=== PATIENT | male | born 1990 | race Caucasian/White ===

== ENCOUNTER 2016-11-24 23:55 | Emergency (ER) | payer SELFPAY ==
[~2016-11-24] VITALS: Ht 190.5 cm; Wt 84.0 kg
[~2016-11-24 23:55] MED LIST: LANTUS2P SC; NOVORP2 SQ; ONDA1TAB16 PO; PROM25TA5 PO
[2016-11-25] VITALS: BP 133/65; PULSE 90; RESP 18; TEMP 98.1; O2SAT 97
[2016-11-25] MEDS ORDERED: IBUPROFEN 800 MG TAB PO ONE (01:45)
[2016-11-25] MEDS ORDERED: PENICILLIN V POTASSIUM 500 MG TAB PO ONE (01:45)
[2016-11-25] MEDS ORDERED: PENI500T PO (01:58)
[2016-11-25] MEDS ORDERED: IBUP800T23 PO (01:58)
--- NOTE | 2016-11-25 02:03 | PD ---
HPI Chief Complaint: Oral / Dental Pain or Problem Time Seen by Provider: 01:37 Travel History International Travel<30 days: No Contact w/Intl Traveler<30days: No Traveled to known affect area: No History of Present Illness HPI 25 year-old male presents to the emergency department for complaint of dental pain with chronic dental infection. Patient has not seen dentist due to financial reasons. Patient denies fever chills patient states she's used over- the-counter Anbesol without relief. PFSH Past Medical History Narrative Medical Diabetes dental disease and tobacco use; nursing notes reviewed Diabetes: Yes Patient Takes Glucophage: Yes Diminished Hearing: No Immunizations Current: No Social History Alcohol Use: No Tobacco Use: Yes (1PPD) Substance Use: No Allergies-Medications (Allergen,Severity, Reaction): Coded Allergies: No Known Allergies (Unverified , 04/19/15) Reported Meds & Prescriptions Reported Meds & Active Scripts Active Zofran Tab (Ondansetron HCl) 4 Mg Tab 4 Mg PO Q6 PRN Phenergan (Promethazine HCl) 25 Mg Tab 25 Mg PO Q6 PRN Lantus (Insulin Glargine) 100 Units/Ml Inj 20 Unit SC HS dispense 1 month supply Reported Novolin R (Insulin Human Regular) 100 Units/Ml Inj 0 SQ DIRECTED Review of Systems Except as stated in HPI: all other systems reviewed are Neg General / Constitutional: No: Fever, Chills HENT: Positive: Dental Difficulties, No: Congestion Cardiovascular: No: Chest Pain or Discomfort Respiratory: No: Shortness of Breath Gastrointestinal: No: Vomiting Genitourinary: No: Flank Pain Musculoskeletal: No: Pain Skin: No Rash Neurologic: No: Weakness Hematologic/Lymphatic: No: Lymph Node Enlargement Physical Exam Narrative GENERAL: Well-developed well-nourished male in no acute distress no respiratory distress triage vital signs within normal range SKIN: Warm and dry. HEAD: Normocephalic. EYES: No scleral icterus. No injection or drainage. ENT: Extensive dental caries with erosion of multiple teeth with gingival edema and gingivitis no fluctuance collection of fluid or soft tissue swelling or palpable in sizable abscess. NECK: Supple, trachea midline. No JVD or lymphadenopathy. CARDIOVASCULAR: Regular rate and rhythm without murmurs, gallops, or rubs. RESPIRATORY: Breath sounds equal bilaterally. No accessory muscle use. Data Data Last Documented VS Vital Signs Date Time Temp Pulse Resp B/P Pulse Ox O2 Delivery O2 Flow Rate FiO2 11/25/16 00:00 98.1 90 18 133/65 97 Orders Penicillin V Potassium (Veetids) (11/25/16 01:45) Ibuprofen (Motrin) (11/25/16 01:45) Blood Glucose (11/25/16 01:37) MDM Medical Decision Making Medical Screen Exam Complete: Yes Emergency Medical Condition: Yes Medical Record Reviewed: Yes Differential Diagnosis Dentalgia, infected dental caries, dental abscess, hyperglycemia, uncontrolled diabetes, DKA Narrative Course Patient given first dose of antibiotic Penicillin VK 500 mg along with weight- based ibuprofen 800 mg Patient is diabetic and bedside Accu-Chek ordered to be checked and patient refuses to have blood sugar checked; patient is encouraged to follow up with primary care provider as well as dentist and to monitor his blood sugars closely as infection can cause his blood sugar to become uncontrolled and predispose him to DKA this was discussed in detail with the patient. Diagnosis Primary Impression: Dentalgia Additional Impression: Infected dental caries Referrals: Dentist call for appointment [facility] 1 day Patient Instructions: General Instructions Additional Instructions: Follow-up with dentist Follow-up with primary care provider or clinic Complete course of antibiotic as prescribed May use ibuprofen 800 mg as needed for pain as often as every 8 hours avoid prolonged use of high-dose ibuprofen Return to the emergency department for any concerns or change in condition Follow-up neck and diabetic Association diet closely monitor blood sugars closely while on antibiotic for dental infection Med/Other Pt SpecificInfo: Prescription(s) given Scripts Ibuprofen 800 Mg [id number] Mg PO Q8H PRN (PAIN GREATER THAN 5) #12 TAB Ref 0 Prov:Kailyn Mays MD 11/25/16 Penicillin V Potassium 500 Mg Syn533 Mg PO Q6H 10 Days Ref 0 Prov:Kailyn Mays MD 11/25/16 Disposition: 01 DISCHARGE HOME Condition: Stable Kailyn Mays MD Nov 25, 2016 02:03
== END 2016-11-25 04:37 | disposition home or self-care (01) ==
LOC: PHED 23:55
DX: K08.89 Other specified disorders of teeth and supporting structures (principal); K02.9 Dental caries, unspecified; K04.7 Periapical abscess without sinus; F17.210 Nicotine dependence, cigarettes, uncomplicated
CPT/HCPCS: 99283

== ENCOUNTER 2016-12-16 16:42 | Inpatient (IN) | payer SELFPAY ==
[2016-12-15] MEDS: SODIUM CHLOR 0.9% 1000 ML INJ 1,000 ML IV SCH (21:00)
[2016-12-15] MEDS: DEXT 5%-NACL 0.9% 1000 ML INJ 1,000 ML IV SCH (23:20)
[~2016-12-16] VITALS: Ht 190.5 cm; Wt 80.0 kg
[~2016-12-16 16:42] MED LIST changes: +IBUP800T23 PO; +PENI500T PO
[2016-12-16 16:43] VITALS: BP 149/68; PULSE 98; RESP 16; TEMP 98.1; O2SAT 98
--- NOTE | 2016-12-16 17:02 | PD ---
Physical Exam Date Seen by Provider: Dec 16, 2016 Time Seen by Provider: 16:57 Narrative Pt is a 25 year old male presenting to the ED for evaluation of a headache nausea and vomiting. Pt states the headache is frontal and throbbing. He states he took Excedrin and Naproxen with no relief. Pt has a history of migraines. The vomiting and nausea started prior to the headache. Pt is unable to keep any food or fluids down. Pt also reports testicle and back pain. The back pain is bilateral. Pt is a T1 diabetic, he did not check his blood glucose today nor did he take his insulin. He checked his blood glucose yesterday and his reading was >400. BG in triage is 497, VSS. Awaiting bed placement. Data Data Last Documented VS Vital Signs Date Time Temp Pulse Resp B/P (MAP) Pulse Ox O2 Delivery O2 Flow Rate FiO2 12/16/16 16:43 98.1 98 16 149/68 (95) 98 MDM Supervised Visit with MALLORIE: Lana Patton Dec 16, 2016 17:02
[2016-12-16] MEDS ORDERED: ONDANSETRON ODT 4 MG TAB PO ONE (17:15)
[2016-12-16 18:00] LABS: BLOOD, URINE NEG (NEG); COMMENT (UR) CULT NOT INDICATED; CULTURE IF INDICATED CULT NOT INDICATED; GLUCOSE,URINE 1000 mg/dL (NEG); KETONE, URINE 150 mg/dL (NEG); NITRITE,URINE NEG (NEG); SQUAMOUS EPITHELIAL CELL URINE <1 /hpf (0-5); URINE COLOR LIGHT-YELLOW (YELLW/STRAW)
[2016-12-16 18:01] LABS: AUTOMATED NEUTROPHIL # 6.4 TH/MM3 (1.8-7.7); BASOPHIL % 0.3 % (0.0-2.0); EOSINOPHIL % 0.1 % (0.0-4.0); HEMATOCRIT 49.1 % (39.0-51.0); HEMO FLAGS DIFF FINAL; LYMPH % 21.4 % (9.0-44.0); LYMPHOCYTE # 1.9 TH/MM3 (1.0-4.8); MEAN CELL VOLUME 96.8 FL (80.0-100.0); MEAN CORPUSCULAR HEMOGLOBIN 33.5 PG (27.0-34.0); MEAN CORPUSCULAR HGB CONC 34.6 % (32.0-36.0); MONO % 5.6 % (0.0-8.0); NEUT % 72.6 % (16.0-70.0); PLATELET COUNT 325 TH/MM3 (150-450); RED BLOOD COUNT 5.07 MIL/MM3 (4.50-5.90); WHITE BLOOD COUNT 8.8 TH/MM3 (4.0-11.0)
[2016-12-16 18:38] VITALS: BP 122/67; PULSE 88; RESP 18; TEMP 97.9; O2SAT 98
[2016-12-16] MEDS ORDERED: NOVORP2 SQ (18:45)
[2016-12-16] MEDS ORDERED: LANTUS2P SQ (18:45)
[2016-12-16 18:46] LABS: ALKALINE PHOSPHATASE 161 U/L (45-117); ALT (GPT) 56 U/L (12-78); ANION GAP 18 MEQ/L (5-15); AST (GOT) 26 U/L (15-37); BETA-HYDROXYBUTYRATE 6.57 MMOL/L (0.00-0.39); BICARBONATE 15.6 MEQ/L (21.0-32.0); BLOOD UREA NITROGEN 16 MG/DL (7-18); CHLORIDE 89 MEQ/L (98-107); GLOMERULAR FILTRATION RATE 54 ML/MIN (>89); MAGNESIUM 2.3 MG/DL (1.5-2.5); POTASSIUM 5.2 MEQ/L (3.5-5.1); TOTAL BILIRUBIN ADULT 0.8 MG/DL (0.2-1.0)
[2016-12-16 18:51] LABS: SODIUM (NA) 123 MEQ/L (136-145)
[2016-12-16] MEDS ORDERED: SODIUM CHLOR 0.9% 1000 ML INJ 1,000 ML IV SCH (18:51)
[2016-12-16 18:59] VITALS: BP 122/67; PULSE 88; RESP 18; TEMP 97.9; O2SAT 100
[2016-12-16] MEDS ORDERED: SODIUM CHLORIDE 0.9% FLUSH 10 ML FLUSH IV FLUSH PRN ×2 (19:00→20:45)
[2016-12-16] MEDS ORDERED: ONDANSETRON HCL 4 MG/2 ML VIAL IV PUSH ONE (19:00)
[2016-12-16] MEDS ORDERED: MORPHINE SULFATE 4 MG/ML INJ IV PUSH ONE (19:00)
[2016-12-16] MEDS ORDERED: INSULIN REGULAR (IV INFUSION) 100 UNITS in SODIUM CHLORIDE 0.9% INJ 99 ML IV SCH (19:01)
[2016-12-16 19:14] VITALS: BP 113/66; PULSE 120; RESP 17; O2SAT 100
[2016-12-16] MEDS ORDERED: POTASSIUM CHLOR 40 MEQ PREMIX 100 ML IV PRN ×2 (19:15)
[2016-12-16] MEDS ORDERED: INSULIN HUMAN REGULAR 1,000 UNITS/10 ML VIAL IV PUSH ONE (19:15)
[2016-12-16] MEDS ORDERED: POTASSIUM CHLOR 20 MEQ PREMIX 100 ML IV PRN ×6 (19:15)
[2016-12-16] MEDS ORDERED: SODIUM PHOSPHATE INJ 15 MMOL in SODIUM CHLORIDE 0.9% INJ 100 ML IV PRN (19:15)
[2016-12-16] MEDS ORDERED: SODIUM BICARBONATE 8.4% SOLN 50 MEQ/50 ML VIAL IV PRN ×2 (19:15)
--- NOTE | 2016-12-16 19:43 | PD ---
HPI Chief Complaint: Headache Time Seen by Provider: 18:47 Travel History International Travel<30 days: No Contact w/Intl Traveler<30days: No Traveled to known affect area: No History of Present Illness HPI 25-year-old male that presents to the ED for evaluation of headache, nausea and vomiting and abdominal pain and testicular pain. Per patient has a history of diabetes type 1 and his sugars have been high. Per patient for the past 2 days his been having nonstop nausea with vomiting and she is afraid to be anything because he is afraid he is to come back up. The patient his abdominal pain is diffuse to the abdomen. Per patient his discomfort is more severe when he throws up. No blood on the emesis. Per patient she has no chest pain. No fevers chills or sweats. No urinary or bowel movement issues. Per patient the discomfort to the abdomen is 5 out of 10 and gets worse when he has vomiting. He denies any allergies to medication. She states that he's been compliant with his insulin but has not used much today because he has not eaten anything today. States that the headache started today on the forehead and he believes is more from throwing up. He denies any numbness, tilling, weakness. She's not been able to keep anything down for the past day. States that he's been also been having some back pain which she attributes to his kidneys. He denies any urinary symptoms however. He does state that he has testicular pain on the right side. Per patient his been going on for a couple of days. Denies any possibility of STD. No dysuria or polyuria. PFSH Past Medical History Diabetes: Yes Patient Takes Glucophage: No Diminished Hearing: No Immunizations Current: No Tetanus Vaccination: Unknown Social History Alcohol Use: No Tobacco Use: Yes (1PPD) Substance Use: No Allergies-Medications (Allergen,Severity, Reaction): Coded Allergies: No Known Allergies (Unverified , 12/16/16) Reported Meds & Prescriptions Reported Meds & Active Scripts Active Reported Lantus Inj (Insulin Glargine) 1,000 Unit/10 Ml Vial 30 Units SQ HS Novolin R Inj (Insulin Human Regular) 1,000 Unit/10 Ml Vial 0 SQ DIRECTED Sliding Scale As Directed. Review of Systems Except as stated in HPI: all other systems reviewed are Neg Physical Exam Narrative GENERAL: SKIN: Warm and dry. HEAD: Atraumatic. Normocephalic. EYES: Pupils equal and round. No scleral icterus. No injection or drainage. ENT: No nasal bleeding or discharge. Mucous membranes pink and moist. Tongue is midline. No uvula deviation. NECK: Trachea midline. No JVD. CARDIOVASCULAR: Regular rate and rhythm. No murmurs, S3, S4. RESPIRATORY: No accessory muscle use. Clear to auscultation. Breath sounds equal bilaterally. GASTROINTESTINAL: Abdomen soft, non-tender with palpation, nondistended. Hepatic and splenic margins not palpable. Patient has reproducible pain with touch in the right testicle. No obvious deformity noted. No swelling. No masses noted. No hernias noted. MUSCULOSKELETAL: Extremities without clubbing, cyanosis, or edema. No obvious deformities. Full range of motion of the upper and lower extremities bilaterally. 2+ pulses bilaterally. NEUROLOGICAL: Awake and alert. No obvious cranial nerve deficits. Motor grossly within normal limits. Five out of 5 muscle strength in the arms and legs. Normal speech. PSYCHIATRIC: Appropriate mood and affect; insight and judgment normal. Data Data Last Documented VS Vital Signs Date Time Temp Pulse Resp B/P (MAP) Pulse Ox O2 Delivery O2 Flow Rate FiO2 12/16/16 19:22 88 20 100 Room Air 12/16/16 19:14 113/66 (82) 12/16/16 18:59 97.9 Orders Orders Complete Blood Count With Diff (12/16/16 17:02) Comprehensive Metabolic Panel (12/16/16 17:02) Magnesium (Mg) (12/16/16 17:02) Beta Hydroxybutyrate (Acetone) (12/16/16 17:02) Urinalysis - C+S If Indicated (12/16/16 17:02) Ondansetron Odt (Zofran Odt) (12/16/16 17:15) Lipase (12/16/16 18:51) Lactic Acid (12/16/16 18:51) Iv Access Insert/Monitor (12/16/16 18:51) Ecg Monitoring (12/16/16 18:51) Oximetry (12/16/16 18:51) Sodium Chloride 0.9% Flush (Ns Flush) (12/16/16 19:00) Morphine Inj (Morphine Inj) (12/16/16 19:00) Sodium Chlor 0.9% 1000 Ml Inj (Ns 1000 M (12/16/16 18:51) Us Testicles W Doppler (12/16/16 18:51) Ondansetron Inj (Zofran Inj) (12/16/16 19:00) Cost Control Analyst / Telemetry LILIA.Q8H (12/16/16 19:01) ^ Insert Iv (12/16/16 19:01) Diet Npo (12/17/16 Breakfast) Sodium Chlor 0.9% 1000 Ml Inj (Ns 1000 M (12/16/16 19:01) Dext 5%-Nacl 0.9% 1000 Ml Inj (D5w-Ns 10 (12/16/16 19:01) Insulin Human Regular Inj (Novolin R Inj (12/16/16 19:15) Sodium Chloride 0.9... W/Insulin Regular (12/16/16 19:01) Potassium Chlor 40 Meq Premix (Kcl 40 Me (12/16/16 19:15) Potassium Chlor 40 Meq Premix (Kcl 40 Me (12/16/16 19:15) Potassium Chlor 20 Meq Premix (Kcl 20 Me (12/16/16 19:15) Potassium Chlor 20 Meq Premix (Kcl 20 Me (12/16/16 19:15) Potassium Chlor 20 Meq Premix (Kcl 20 Me (12/16/16 19:15) Potassium Chlor 20 Meq Premix (Kcl 20 Me (12/16/16 19:15) Potassium Chlor 20 Meq Premix (Kcl 20 Me (12/16/16 19:15) Potassium Chlor 20 Meq Premix (Kcl 20 Me (12/16/16 19:15) Sodium Bicarbonate 8.4% Inj (Sodium Bica (12/16/16 19:15) Sodium Bicarbonate 8.4% Inj (Sodium Bica (12/16/16 19:15) Sodium Phosphate Inj (Sodium Phosphate I (12/16/16 19:15) Hemoglobin (Hgb) A1c (12/16/16 19:01) Basic Metabolic Panel (Bmp) (12/17/16 00:01) Basic Metabolic Panel (Bmp) (12/17/16 06:01) Basic Metabolic Panel (Bmp) (12/17/16 12:01) Basic Metabolic Panel (Bmp) (12/17/16 18:01) Magnesium (Mg) (12/17/16 00:01) Magnesium (Mg) (12/17/16 06:01) Magnesium (Mg) (12/17/16 12:01) Magnesium (Mg) (12/17/16 18:01) Phosphorus (Po4) (12/17/16 00:01) Phosphorus (Po4) (12/17/16 06:01) Phosphorus (Po4) (12/17/16 12:01) Phosphorus (Po4) (12/17/16 18:01) Beta Hydroxybutyrate (Acetone) (12/17/16 06:01) Beta Hydroxybutyrate (Acetone) (12/17/16 18:01) Admit To Inpatient (12/16/16 ) Vital Signs (Adult) Q4H (12/16/16 20:32) Activity Oob With Assistance (12/16/16 20:32) Cost Control Analyst / Telemetry .CONTINUOUS (12/16/16 20:32) Sodium Chloride 0.9% Flush (Ns Flush) (12/16/16 20:45) Sodium Chloride 0.9% Flush (Ns Flush) (12/16/16 21:00) Case Management Consult (12/16/16 20:32) Naloxone Inj (Narcan Inj) (12/16/16 20:45) Inpatient Certification (12/16/16 ) Admit Order (Ed Use Only) (12/16/16 20:34) Labs Laboratory Tests Test 12/16/16 17:20 12/16/16 17:25 12/16/16 17:28 Lactic Acid Level 1.1 mmol/L White Blood Count 8.8 TH/MM3 Red Blood Count 5.07 MIL/MM3 Hemoglobin 17.0 GM/DL Hematocrit 49.1 % Mean Corpuscular Volume 96.8 FL Mean Corpuscular Hemoglobin 33.5 PG Mean Corpuscular Hemoglobin Concent 34.6 % Red Cell Distribution Width 14.0 % Platelet Count 325 TH/MM3 Mean Platelet Volume 6.2 FL Neutrophils (%) (Auto) 72.6 % Lymphocytes (%) (Auto) 21.4 % Monocytes (%) (Auto) 5.6 % Eosinophils (%) (Auto) 0.1 % Basophils (%) (Auto) 0.3 % Neutrophils # (Auto) 6.4 TH/MM3 Lymphocytes # (Auto) 1.9 TH/MM3 Monocytes # (Auto) 0.5 TH/MM3 Eosinophils # (Auto) 0.0 TH/MM3 Basophils # (Auto) 0.0 TH/MM3 CBC Comment DIFF FINAL Differential Comment Blood Urea Nitrogen 16 MG/DL Creatinine 1.56 MG/DL Random Glucose 496 MG/DL Total Protein 8.2 GM/DL Albumin 4.0 GM/DL Calcium Level 9.0 MG/DL Magnesium Level 2.3 MG/DL Alkaline Phosphatase 161 U/L Aspartate Amino Transf (AST/SGOT) 26 U/L Alanine Aminotransferase (ALT/SGPT) 56 U/L Total Bilirubin 0.8 MG/DL Sodium Level 123 MEQ/L Potassium Level 5.2 MEQ/L Chloride Level 89 MEQ/L Carbon Dioxide Level 15.6 MEQ/L Anion Gap 18 MEQ/L Estimat Glomerular Filtration Rate 54 ML/MIN Lipase 68 U/L B-Hydroxybutyrate 6.57 MMOL/L Urine Color LIGHT-YELLOW Urine Turbidity CLEAR Urine pH 6.0 Urine Specific Cyril 1.039 Urine Protein TRACE mg/dL Urine Glucose (UA) 1000 mg/dL Urine Ketones 150 mg/dL Urine Occult Blood NEG Urine Nitrite NEG Urine Bilirubin NEG Urine Urobilinogen LESS THAN 2.0 MG/DL Urine Leukocyte Esterase NEG Urine WBC LESS THAN 1 /hpf Urine Squamous Epithelial Cells <1 /hpf Microscopic Urinalysis Comment CULT NOT INDICATED MDM Medical Decision Making Medical Screen Exam Complete: Yes Emergency Medical Condition: Yes Medical Record Reviewed: Yes Interpretation(s) CBC & BMP Diagram 12/16/16 17:25 Total Protein 8.2, Albumin 4.0, Calcium Level 9.0, Magnesium Level 2.3, Alkaline Phosphatase 161 H, Aspartate Amino Transf (AST/SGOT) 26, Alanine Aminotransferase (ALT/SGPT) 56, Total Bilirubin 0.8 acetone elevated US shows no sign of acute disease other than microlithiasis Differential Diagnosis DKA versus intractable nausea and vomiting versus diabetes versus abdominal pain versus dehydration versus hyperglycemia Narrative Course 25-year-old male that presents to the ED for evaluation of abdominal pain, vomiting as well as right testicular pain. Patient was properly examined and was found to have signs and symptoms very consistent what appears to be DKA. Unclear of the testicular pain but we'll do ultrasound for this. Labs were done. Labs confirmed diagnosis of DKA. Anion gap of 18, elevated potassium as well as elevated sugars in the 400s. Acetone elevated as well. DKA protocol was started. Case discussed with my attending Dr. Arnold who agrees with plan. Patient will be admitted for DKA. This was discussed with the patient who agrees with plan. Ultrasound showed microlithiasis. Otherwise unremarkable. This time patient will be admitted for DKA. Case discussed with Dr. Sutherland who agrees with admission. Diagnosis Primary Impression: DKA (diabetic ketoacidoses) Qualified Codes: E10.10 - Type 1 diabetes mellitus with ketoacidosis without coma Additional Impression: Testicular pain, right Admitting Information Admitting Physician Requests: Admit Etienne Andrews Dec 16, 2016 19:43
--- NOTE | 2016-12-16 20:39 | RADRPT ---
EXAM DATE/TIME: 12/16/2016 19:09 [facility] COMPARISON: No previous studies available for comparison. INDICATIONS : Testicular pain. MEDICAL HISTORY : Diabetes. Nausea. Vomiting. SURGICAL HISTORY : Left foot surgery. ENCOUNTER: Initial ACUITY: 2 days PAIN SCORE: 4/10 LOCATION: Bilateral testicles. MEASUREMENTS: RIGHT TESTICLE: 4.2 x 3.0 x 1.8cm LEFT TESTICLE: 4.0 x 2.8 x 1.6cm FINDINGS: RIGHT TESTICLE: Homogeneous echotexture without intra or extratesticular mass. There are tiny punctate echogenic foc i seen within the testicle. Blood flow is symmetric and within normal limits. No hydrocele or varico nahum. Epididymis is within normal limits. LEFT TESTICLE: Homogeneous echotexture without intra or extratesticular mass. There are tiny punctate echogenic foc i seen within the testicle. Blood flow is symmetric and within normal limits. No hydrocele or varico nahum. Epididymis is within normal limits. SCROTUM: Within normal limits. CONCLUSION: Testicles demonstrate normal flow and are without focal masses. There does appear to be minimal micro lithiasis bilaterally. Samson Conway MD on December 16, 2016 at 20:35 Board Certified Radiologist. This report was verified electronically.
[2016-12-16] MEDS ORDERED: NALOXONE HCL 0.4 MG/ML AMP IV PRN (20:45)
[2016-12-16] MEDS: SODIUM CHLORIDE 0.9% FLUSH 10 ML FLUSH IV FLUSH SCH (21:00)
[2016-12-16 22:06] VITALS: BP 114/64; PULSE 101; RESP 20; TEMP 97.7; O2SAT 99
[2016-12-16] MEDS: SODIUM CHLOR 0.9% 1000 ML INJ 1,000 ML IV SCH (23:01)
[2016-12-17] VITALS (11 sets, daily range): BP systolic 86–125; BP diastolic 48–71; PULSE 70–93; RESP 14–18; TEMP 97.4–98.5; O2SAT 98–100
[2016-12-17] MEDS: DEXT 5%-NACL 0.9% 1000 ML INJ 1,000 ML IV SCH (00:01)
[2016-12-17] MEDS ORDERED: SODIUM CHLOR 0.9% 1000 ML INJ 1,000 ML IV ONE (01:00)
[2016-12-17 01:34] LABS: BICARBONATE 16.9 MEQ/L (21.0-32.0); POTASSIUM 3.8 MEQ/L (3.5-5.1)
--- NOTE | 2016-12-17 01:37 | HHI.HP ---
[facility] Primary Care Physician Admission Diagnosis acute DKA Diagnoses: Travel History International Travel<30 Days: No Contact w/Intl Traveler <30 Da: No Traveled to Known Affected Are: No History of Present Illness nausea vomiting abodminal pain 2 day right testicle pain 4 days no fever vomiting maybe black no blood thinners no cough no burning or pain on urination. No blood in urine or stool. Diabetic, reports compliance. takes novolin r sliding scale and levemir 30units qhs no chest pain/ sob/ dizziness/syncope Review of Systems Except as stated in HPI: all other systems reviewed are Neg Past Family Social History Past Medical History dm Past Surgical History no sx Allergies: Coded Allergies: No Known Allergies (Unverified , 12/16/16) Family History lung cancer- mom Social History smokes about 1 pack a day no etoh use marijuana previously used to use iv drugs, but none since more than a year Physical Exam Vital Signs Vital Signs Date Time Temp Pulse Resp B/P (MAP) Pulse Ox O2 Delivery O2 Flow Rate FiO2 12/17/16 00:11 93 15 86/48 (61) 99 12/16/16 22:06 97.7 101 20 114/64 (81) 99 12/16/16 19:22 88 20 100 Room Air 12/16/16 19:14 120 17 113/66 (82) 100 Room Air 12/16/16 18:59 97.9 88 18 122/67 (85) 100 Room Air 12/16/16 18:38 88 18 98 Room Air 12/16/16 18:38 97.9 88 18 122/67 (85) 98 Room Air 12/16/16 16:43 98.1 98 16 149/68 (95) 98 Physical Exam GENERAL: This is a well-nourished, well-developed patient, in no apparent distress. SKIN: No rashes, ecchymoses or lesions. Cool and dry. HEAD: Atraumatic. Normocephalic. No temporal or scalp tenderness. EYES: No scleral icterus. No injection or drainage. ENT: Nose without bleeding, purulent drainage or septal hematoma. . Airway patent. extremely poor dentition with multiple cracked teeth, periodontal disease. NECK: Trachea midline. No JVD CARDIOVASCULAR: Regular rate and rhythm without murmurs, gallops, or rubs. RESPIRATORY: Clear to auscultation. Breath sounds equal bilaterally. No wheezes , rales, or rhonchi. GASTROINTESTINAL: Abdomen soft, non-tender, nondistended. No guarding. : Patient was examined with a leather production worker nurse Pilar. Patient has no evidence of swelling on right testicle. No pain was elicited on palpation or movement of the testicle. Reports that the pain is actually comes and goes. MUSCULOSKELETAL: Extremities without clubbing, cyanosis, or edema No calf tenderness. NEUROLOGICAL: Awake and alert. Motor and sensory grossly within normal limits. Normal speech. Laboratory Laboratory Tests Test 12/16/16 17:20 12/16/16 17:25 12/16/16 17:28 12/17/16 00:54 Lactic Acid Level 1.1 White Blood Count 8.8 Red Blood Count 5.07 Hemoglobin 17.0 Hematocrit 49.1 Mean Corpuscular Volume 96.8 Mean Corpuscular Hemoglobin 33.5 Mean Corpuscular Hemoglobin Concent 34.6 Red Cell Distribution Width 14.0 Platelet Count 325 Mean Platelet Volume 6.2 Neutrophils (%) (Auto) 72.6 Lymphocytes (%) (Auto) 21.4 Monocytes (%) (Auto) 5.6 Eosinophils (%) (Auto) 0.1 Basophils (%) (Auto) 0.3 Neutrophils # (Auto) 6.4 Lymphocytes # (Auto) 1.9 Monocytes # (Auto) 0.5 Eosinophils # (Auto) 0.0 Basophils # (Auto) 0.0 CBC Comment DIFF FINAL Differential Comment Blood Urea Nitrogen 16 Creatinine 1.56 Random Glucose 496 Total Protein 8.2 Albumin 4.0 Calcium Level 9.0 Magnesium Level 2.3 Alkaline Phosphatase 161 Aspartate Amino Transf (AST/SGOT) 26 Alanine Aminotransferase (ALT/SGPT) 56 Total Bilirubin 0.8 Sodium Level 123 Potassium Level 5.2 Chloride Level 89 Carbon Dioxide Level 15.6 Anion Gap 18 Estimat Glomerular Filtration Rate 54 Lipase 68 B-Hydroxybutyrate 6.57 Urine Color LIGHT-YELLOW Urine Turbidity CLEAR Urine pH 6.0 Urine Specific [place] 1.039 Urine Protein TRACE Urine Glucose (UA) 1000 Urine Ketones 150 Urine Occult Blood NEG Urine Nitrite NEG Urine Bilirubin NEG Urine Urobilinogen LESS THAN 2.0 Urine Leukocyte Esterase NEG Urine WBC LESS THAN 1 Urine Squamous Epithelial Cells <1 Microscopic Urinalysis Comment CULT NOT INDICATED Result Diagram: 12/16/16 1725 12/16/16 1725 Imaging Last 48 hours Impressions Scrotum Ultrasound 12/16/16 1851 Signed Impressions: Service Date/Time: Friday, December 16, 2016 19:09 - CONCLUSION: Testicles demonstrate normal flow and are without focal masses. There does appear to be minimal microlithiasis bilaterally. MD Zeferino Laboy VTE Risk Assessment Caprini VTE Risk Assessment: Mod/High Risk (score >= 2) Caprini Risk Assessment Model Point Value = 1 Point Value = 2 Point Value = 3 Point Value = 5 Age 41-60 Minor surgery BMI > 25 kg/m2 Swollen legs Varicose veins or History of unexplained or recurrent spontaneous Oral contraceptives or hormone replacement Sepsis (< 1 month) Serious lung disease, including pneumonia (< 1 month) Abnormal pulmonary function Acute myocardial infarction Congestive heart failure (< 1 month) History of inflammatory bowel disease Medical patient at bed rest Age 61-74 Arthroscopic surgery Major open surgery (> 45 min) Laparoscopic surgery (> 45 min) Malignancy Confined to bed (> 72 hours) Immobilizing plaster cast Central venous access Age >= 75 History of VTE Family history of VTE Factor V Leiden Prothrombin [id number] Lupus anticoagulant Anticardiolipin antibodies Elevated serum homocysteine Heparin-induced thrombocytopenia Other congenital or acquired thrombophilia Stroke (< 1 month) Elective arthroplasty Hip, pelvis, or leg fracture Acute spinal cord injury (< 1 month) Prophylaxis Regimen Total Risk Factor Score Risk Level Prophylaxis Regimen 0-1 Low Early ambulation 2 Moderate Order ONE of the following: *Sequential Compression Device (SCD) *Heparin 5000 units SQ BID 3-4 Higher Order ONE of the following medications: *Heparin 5000 units SQ TID *Enoxaparin/Lovenox 40 mg SQ daily (WT < 150 kg, CrCl > 30 mL/min) *Enoxaparin/Lovenox 30 mg SQ daily (WT < 150 kg, CrCl > 10-29 mL/min) *Enoxaparin/Lovenox 30 mg SQ BID (WT < 150 kg, CrCl > 30 mL/min) AND/OR *Sequential Compression Device (SCD) 5 or more Highest Order ONE of the following medications: *Heparin 5000 units SQ TID (Preferred with Epidurals) *Enoxaparin/Lovenox 40 mg SQ daily (WT < 150 kg, CrCl > 30 mL/min) *Enoxaparin/Lovenox 30 mg SQ daily (WT < 150 kg, CrCl > 10-29 mL/min) *Enoxaparin/Lovenox 30 mg SQ BID (WT < 150 kg, CrCl > 30 mL/min) AND *Sequential Compression Device (SCD) Assessment and Plan Assessment and Plan Impression: DKA Anion gap metabolic acidosis Right testicular pain- rule out torsion Severe periodontal disease- likely contributing to his DKA Plan: Patient was given normal saline 2 L IV bolus. He was started on insulin drip per protocol. We'll follow protocol. BMP every 4 hours. Testicular ultrasound done. Personally reviewed. No Evidence of torsion. Official consult for possible removal of teeth. DVT prophylaxis with ambulation, and Lovenox. GI prophylaxis on pantoprazole. Discussed Condition With patient, ER MD, nursing staff Physician Certification 2 Midnight Certification Type: Admission for Inpatient Services Order for Inpatient Services .The services are ordered in accordance with Medicare regulations or non- Medicare payer requirements, as applicable. In the case of services not specified as inpatient-only, they are appropriately provided as inpatient services in accordance with the 2-midnight benchmark. Estimated LOS (days): 2 days is the estimated time the patient will need to remain in the hospital, assuming treatment plan goals are met and no additional complications. Post-Hospital Plan: Home Blake Sutherland MD Dec 17, 2016 01:37
[2016-12-17] MEDS ORDERED: MORPHINE SULFATE 4 MG/ML INJ IV PUSH PRN (01:45)
[2016-12-17 05:12] LABS: BICARBONATE 18.6 MEQ/L (21.0-32.0); POTASSIUM 4.1 MEQ/L (3.5-5.1)
[2016-12-17 05:33] LABS: CALCIUM-PROTEIN CORRECTED 8.1 MG/DL (8.5-10.1)
[2016-12-17] MEDS ORDERED: INSULIN DETEMIR 100 UNITS/ML VIAL SQ ONE (06:15)
[2016-12-17] MEDS ORDERED: CALCIUM GLUCONATE 10% 1 GM/10 ML VIAL IV PUSH ONE (06:15)
[2016-12-17] MEDS ORDERED: CALCIUM GLUCONATE INJ 2 GM in SODIUM CHLORIDE 0.9% INJ 100 ML IV ONE (06:30)
[2016-12-17] MEDS: SODIUM CHLORIDE 0.9% FLUSH 10 ML FLUSH IV FLUSH SCH ×2 (09:00→21:01)
[2016-12-17] MEDS ORDERED: DC previous DKA orders (HMC 1917) ONE (11:00)
[2016-12-17] MEDS ORDERED: GLUCAGON 1 MG/ML VIAL OTHER PRN (11:00)
[2016-12-17] MEDS ORDERED: DC Insulin drip 2 hrs post basal insulin dose ONE (11:00)
[2016-12-17] MEDS ORDERED: DEXTROSE 50% IN WATER 50 ML VIAL(D50) IV PRN (11:00)
[2016-12-17] MEDS: SODIUM CHLOR 0.9% 1000 ML INJ 1,000 ML IV SCH ×2 (12:00→21:01)
[2016-12-17] MEDS: INSULIN ASPART SUPPLEMENTAL SCALE SQ SCH ×3 (12:21→21:16)
[2016-12-17 12:48] LABS: HEMOGLOBIN A1a 1.4 %; HEMOGLOBIN A1b 1.6 %; HEMOGLOBIN Ao 73.4 %; HEMOGLOBIN LA1C 4.3 %; HEMOGLOBIN P3 5.4 %
--- NOTE | 2016-12-17 15:34 | HHI.PR ---
Subjective Remarks Follow up DKA. Patient has no complaints at this time. No dyspnea, chest pain, nausea/vomiting. Objective Vitals Vital Signs Date Time Temp Pulse Resp B/P (MAP) Pulse Ox O2 Delivery O2 Flow Rate FiO2 12/17/16 14:07 70 16 109/63 (78) 100 12/17/16 13:20 118/71 (87) 12/17/16 12:00 88 16 100 12/17/16 10:00 98.2 80 18 114/57 (76) 100 12/17/16 09:00 90 18 95/59 (71) 98 Room Air 12/17/16 08:53 98 12/17/16 08:00 90 18 99/55 (70) 99 Room Air 12/17/16 07:15 97.4 78 18 89/53 (65) 100 Room Air 12/17/16 07:15 100 Room Air 12/17/16 02:45 79 18 90/52 (65) 99 Room Air 12/17/16 00:11 93 15 86/48 (61) 99 12/16/16 22:06 97.7 101 20 114/64 (81) 99 12/16/16 19:22 88 20 100 Room Air 12/16/16 19:14 120 17 113/66 (82) 100 Room Air 12/16/16 18:59 97.9 88 18 122/67 (85) 100 Room Air 12/16/16 18:38 88 18 98 Room Air 12/16/16 18:38 97.9 88 18 122/67 (85) 98 Room Air 12/16/16 16:43 98.1 98 16 149/68 (95) 98 I/O 12/16/16 12/16/16 12/16/16 12/17/16 12/17/16 12/17/16 07:00 15:00 23:00 07:00 15:00 23:00 Intake Total 16 ml 2500 ml Output Total 1200 ml 1150 ml Balance -1200 ml 16 ml 1350 ml Intake Oral 2280 ml IV Total 16 ml 220 ml Output Urine Total 1200 ml 1150 ml # Voids 2 4 # Bowel Movements 1 Result Diagram: 12/16/16 1725 12/17/16 0426 Imaging Last Impressions Scrotum Ultrasound 12/16/16 3061 Signed Impressions: Service Date/Time: Friday, December 16, 2016 19:09 - CONCLUSION: Testicles demonstrate normal flow and are without focal masses. There does appear to be minimal microlithiasis bilaterally. Samson Conway MD Objective Remarks General: No acute distress. Heart: Regular rate and rhythm. No murmur. Lungs: Clear to auscultation bilaterally. No wheezes, rales, or rhonchi. Breathing is nonlabored. Abdomen: Soft, nontender, nondistended. Extremities: No lower extremity edema. Psych: Alert and oriented. Procedures None Urinary Catheter: No Vascular Central Line Catheter: No A/P Problem List: (1) DKA (diabetic ketoacidoses) ICD Code: E13.10 - Other specified diabetes mellitus with ketoacidosis without coma Status: Acute (2) Testicular pain, right ICD Code: N50.811 - Right testicular pain Status: Acute (3) Type 1 diabetes mellitus ICD Code: E10.9 - Type 1 diabetes mellitus Status: Acute (4) Dentalgia ICD Code: K08.89 - Other specified disorders of teeth and supporting structures Status: Acute Assessment and Plan 1. Type 1 diabetes mellitus with DKA: Started on DKA protocol. DKA resolved and patient transitioned to subcutaneous insulin. Diabetic diet. Monitor accuchecks and cover with sliding scale insulin. 2. Dental pain: S/P oromaxillofacial surgery evaluation. Follow up with general dentistry as outpatient. 3. DVT prophylaxis: Lovenox. Discharge Planning Anticipate discharge next 1-2 days if glucose remains stable. Problem Qualifiers (1) DKA (diabetic ketoacidoses): Qualified Codes: E10.10 - Type 1 diabetes mellitus with ketoacidosis without coma Devin Lane MD Dec 17, 2016 15:34
[2016-12-17 16:46] LABS: POTASSIUM 4.1 MEQ/L (3.5-5.1)
[2016-12-17] MEDS ORDERED: ENOXAPARIN SODIUM 40 MG/0.4 ML SYRINGE SQ SCH (17:00)
--- NOTE | 2016-12-17 21:51 | MB ---
cc: FIOR ROY DMD DATE OF CONSULTATION 12/17/2016 REASON FOR CONSULTATION Dentition. HISTORY OF THE PRESENT ILLNESS I have seen and examined this patient earlier this morning. This is a 25-year-old male who was admitted for diabetic ketoacidosis. And also for some right testicular pain x4 days. He has got a history of nausea, vomiting also. He denies any fever, chills, nausea, vomiting this morning or shortness of breath, difficulty breathing or difficulty swallowing. Denies any discomfort with his dentition. PAST MEDICAL HISTORY Diabetes mellitus. ALLERGIES Denied MEDICATIONS He says he takes Novolin and also Levemir. SOCIAL HISTORY Tobacco one pack per day. Denies any current drug abuse. Denies any alcohol use. EXAMINATION VITAL SIGNS: Temperature 97.4, pulse is 78, blood pressure 89/58, oxygen saturation 100%. HEENT: Facial examination noted no facial edema. No neck edema. Intraorally generalized poor dentition. Worn occlusal on the lower dentition. Some broken teeth that are noted. Tissues are pink and well-perfused. No elevation of floor of the mouth or the tongue. No edema that is noted intraorally. No signs of any acute infection, bleeding, pus or edema. LABORATORY DATA White count on the was 8.8 with an H&H of 17 and 49.1. Platelet count of 325. Glucose on admission was 496. IMPRESSION AND PLAN This is a 25-year-old male with diabetic ketoacidosis, testicular pain. Generalized decayed teeth, worn dentition. There are chronic dental caries, broken down teeth. I advised the patient to see a dentist. Also advised to see me Dr. Roy at [facility] [phone] when discharged. Discussed with the patient importance of maintaining good proper dental hygiene and treatment of his dental situation. Also discussed with Dr. Lane earlier this afternoon regarding the patient's condition and that he is going to require to see us at [facility] when discharged and also to follow up with a dentist to maintain stable dentition. The patient also going to probably require some dentures to promote stable dentition. At this time no surgical intervention is required from oral maxillofacial surgery standpoint. Fior Roy, LYRIC ENGINE TESTER/KK /9:20 PM /9:29 PM ARELI
[2016-12-18] VITALS: BP 118/64; PULSE 70; RESP 16; TEMP 98.2; O2SAT 98
[2016-12-18 04:00] VITALS: BP 131/77; PULSE 52; RESP 12; TEMP 98; O2SAT 98
[2016-12-18] MEDS: SODIUM CHLOR 0.9% 1000 ML INJ 1,000 ML IV SCH (07:08)
[2016-12-18] MEDS: SODIUM CHLORIDE 0.9% FLUSH 10 ML FLUSH IV FLUSH SCH (07:24)
[2016-12-18] MEDS: INSULIN ASPART SUPPLEMENTAL SCALE SQ SCH ×2 (07:24→11:04)
[2016-12-18 08:00] VITALS: BP 143/83; PULSE 68; PULSE 71; RESP 13; TEMP 98.1; O2SAT 99
[2016-12-18] MEDS ORDERED: LANTUS2P SQ (08:58)
[2016-12-18] MEDS ORDERED: NOVORP2 SQ (08:58)
--- NOTE | 2016-12-18 08:58 | HHI.DCPOC ---
Discharge Care Plan Diagnosis: (1) DKA (diabetic ketoacidoses) (2) Testicular pain, right (3) Dentalgia (4) Type 1 diabetes mellitus Goals to Promote Your Health * To prevent worsening of your condition and complications * To maintain your health at the optimal level Directions to Meet Your Goals Take your medications as prescribed Follow your dietary instruction Follow activity as directed Keep your appointments as scheduled Take your immunizations and boosters as scheduled If your symptoms worsen call your PCP, if no PCP go to Urgent Care Center or Emergency Room Smoking is Dangerous to Your Health. Avoid second hand smoke Call the 24-hour hour crisis hotline for domestic abuse at Devin Lane MD Dec 18, 2016 08:58
[2016-12-18] MEDS ORDERED: INSULIN DETEMIR 100 UNITS/ML VIAL SQ SCH (09:00)
[2016-12-18 09:39] LABS: BICARBONATE 25.5 MEQ/L (21.0-32.0); MAGNESIUM 1.6 MG/DL (1.5-2.5); POTASSIUM 3.9 MEQ/L (3.5-5.1)
--- NOTE | 2016-12-18 09:50 | HHI.PR ---
Subjective Remarks Follow up DKA. Patient has no complaints at this time. Wants to go home. States that he feels normal. Denies chest pain, dyspnea, nausea, vomiting. Objective Vitals Vital Signs Date Time Temp Pulse Resp B/P (MAP) Pulse Ox O2 Delivery O2 Flow Rate FiO2 12/18/16 08:00 98.1 71 13 143/83 (103) 99 12/18/16 08:00 68 12/18/16 04:00 98.0 52 12 131/77 (95) 98 12/18/16 00:00 98.2 70 16 118/64 (82) 98 12/17/16 20:00 97.9 73 16 125/69 (87) 100 12/17/16 20:00 83 12/17/16 16:00 98.5 88 14 101/53 (69) 99 12/17/16 14:07 70 16 109/63 (78) 100 12/17/16 13:20 118/71 (87) 12/17/16 12:00 88 16 100 12/17/16 10:00 98.2 80 18 114/57 (76) 100 I/O 12/17/16 12/17/16 12/17/16 12/18/16 12/18/16 12/18/16 07:00 15:00 23:00 07:00 15:00 23:00 Intake Total 16 ml 2500 ml 2900 ml 1630 ml Output Total 1150 ml 3550 ml 850 ml 600 ml Balance 16 ml 1350 ml -650 ml 780 ml -600 ml Intake Oral 2280 ml 2220 ml 440 ml IV Total 16 ml 220 ml 680 ml 1190 ml Output Urine Total 1150 ml 3550 ml 850 ml 600 ml # Voids 4 2 # Bowel Movements 1 Result Diagram: 12/16/16 1725 12/18/16 0808 Imaging Last Impressions Scrotum Ultrasound 12/16/16 1851 Signed Impressions: Service Date/Time: Friday, December 16, 2016 19:09 - CONCLUSION: Testicles demonstrate normal flow and are without focal masses. There does appear to be minimal microlithiasis bilaterally. Samson Conway MD Objective Remarks General: No acute distress. Heart: Regular rate and rhythm. No murmur. Lungs: Clear to auscultation bilaterally. No wheezes, rales, or rhonchi. Breathing is nonlabored. Abdomen: Soft, nontender, nondistended. Extremities: No lower extremity edema. Psych: Alert and oriented. Procedures None Urinary Catheter: No Vascular Central Line Catheter: No A/P Problem List: (1) DKA (diabetic ketoacidoses) ICD Code: E13.10 - Other specified diabetes mellitus with ketoacidosis without coma Status: Acute (2) Testicular pain, right ICD Code: N50.811 - Right testicular pain Status: Acute (3) Type 1 diabetes mellitus ICD Code: E10.9 - Type 1 diabetes mellitus Status: Acute (4) Dentalgia ICD Code: K08.89 - Other specified disorders of teeth and supporting structures Status: Acute Assessment and Plan 1. Type 1 diabetes mellitus with DKA: DKA resolved and patient transitioned to subcutaneous insulin. Diabetic diet. Monitor accuchecks and cover with sliding scale insulin. Glucose was improved overnight, elevated again this morning. 2. Dental pain: S/P oromaxillofacial surgery evaluation. Follow up with oromaxillofacial surgery and general dentistry as outpatient. 3. DVT prophylaxis: Lovenox. Discharge Planning Discharge home in stable condition. Follow up with PCP. Diabetic diet. Activity as tolerated. Problem Qualifiers (1) DKA (diabetic ketoacidoses): Qualified Codes: E10.10 - Type 1 diabetes mellitus with ketoacidosis without coma Devin Lane MD Dec 18, 2016 09:50
[2016-12-18 10:05] VITALS: BP 130/69; PULSE 77; RESP 16; TEMP 97.8; O2SAT 99
[2016-12-18 12:11] VITALS: PULSE 84; RESP 15; TEMP 98; O2SAT 99
== END 2016-12-18 12:54 | disposition home or self-care (01) | DRG 639 ==
LOC: NEPC 16:42 → NEDA 20:36 → NEDH 12-17 00:36 → HPIC 12-17 09:58 → UNDODISIN 12-18 12:54
PROVIDERS: ADMIT Family Medicine; ATTEND Family Medicine
DX: E10.10 Type 1 diabetes mellitus with ketoacidosis without coma (principal); N50.811 Right testicular pain; K05.6 Periodontal disease, unspecified; K02.9 Dental caries, unspecified; F17.210 Nicotine dependence, cigarettes, uncomplicated; Z79.4 Long term (current) use of insulin
CPT/HCPCS: 76870; 80048; 80053; 81001; 82010; 82948; 83036; 83605; 83690; 83735; 84100; 84155; 85025; 93975; 96360; J0610; J1650; J1815; J1817; J2270; J2405; J3480; J7030; J7042

== ENCOUNTER 2017-02-23 20:46 | Emergency (ER) | payer SELFPAY ==
[~2017-02-23 20:46] MED LIST changes: -IBUP800T23 PO; -LANTUS2P SC; +LANTUS2P SQ; -ONDA1TAB16 PO; -PENI500T PO; -PROM25TA5 PO
[2017-02-23 20:54] VITALS: BP 135/86; PULSE 109; RESP 20; TEMP 98.3
[2017-02-23] MEDS ORDERED: LANTUS2P SQ (21:01)
[2017-02-23] MEDS ORDERED: TYLE325T PO (21:04)
[2017-02-23] MEDS ORDERED: IBUP1TAB5 PO (21:04)
[2017-02-23] MEDS ORDERED: PENICILLIN V POTASSIUM 500 MG TAB PO ONE (21:15)
[2017-02-23] MEDS ORDERED: PENI500T PO (21:19)
[2017-02-23] MEDS ORDERED: IBUP1TAB7 PO (21:19)
[2017-02-23] MEDS ORDERED: TRAM50TA PO (21:19)
--- NOTE | 2017-02-23 21:25 | PD ---
HPI Chief Complaint: Oral / Dental Pain or Problem Time Seen by Provider: 21:11 Travel History International Travel<30 days: No Contact w/Intl Traveler<30days: No Traveled to known affect area: No History of Present Illness HPI 26-year-old male with dental pain. Patient has frequent visits emergency department for dental pain associated with significant dental disease gingivitis blood sugars have been fairly well-controlled have. Patient states he has been to dentist and states he to have dental extraction to oral surgeon states he cannot afford this. Patient has had pretty good control of his dental pain and dental patient denies any fever or chills. Patient has use over -the-counter acetaminophen and ibuprofen and Orajel with only minimal symptom relief. Patient denies fever or chills. Patient states that he did eat just prior to arrival to the emergency department. Current dental pain is in the right lower mandible area. Patient is not noticed any mass or swelling in the jaw or submandibular distribution. Patient's had no recent cold symptoms. Patient's had no nausea vomiting polyuria polydipsia or polyphagia. Patient rates his pain 10 over 10 in intensity. PFSH Past Medical History Diabetes: Yes Patient Takes Glucophage: No Diminished Hearing: No Immunizations Current: No Tetanus Vaccination: Unknown Influenza Vaccination: No Social History Alcohol Use: No Tobacco Use: Yes (1PPD) Substance Use: No Allergies-Medications (Allergen,Severity, Reaction): Coded Allergies: No Known Allergies (Verified Adverse Reaction, Unknown, 02/23/17) Reported Meds & Prescriptions Reported Meds & Active Scripts Active Penicillin V Potassium 500 Mg Tab 500 Mg PO Q6H 10 Days Tramadol (Tramadol HCl) 50 Mg Tab 50 Mg PO Q6H PRN Ibuprofen 800 Mg Tab 800 Mg PO Q8H PRN Novolin R Inj (Insulin Human Regular) 1,000 Unit/10 Ml Vial 0 SQ DIRECTED Sliding Scale As Directed. Reported Ibuprofen 400 Mg Tab 400 Mg PO ONCE PRN Tylenol (Acetaminophen) 325 Mg Tab 650 Mg PO ONCE PRN Lantus Inj (Insulin Glargine) 1,000 Unit/10 Ml Vial 20 Units SQ HS Review of Systems Except as stated in HPI: all other systems reviewed are Neg General / Constitutional: No: Fever, Chills HENT: Positive: Dental Difficulties, No: Headaches, Masses Cardiovascular: No: Chest Pain or Discomfort Respiratory: No: Shortness of Breath Gastrointestinal: No: Nausea, Vomiting Musculoskeletal: No: Myalgias, Arthralgias Skin: No Rash Neurologic: No: Weakness Hematologic/Lymphatic: Positive: Lymph Node Enlargement Physical Exam Narrative GENERAL: Well-developed well-nourished male in no acute distress no respiratory distress SKIN: Warm and dry. HEAD: Normocephalic. EYES: No scleral icterus. No injection or drainage. ENT: Mucous membranes moist , airway is patent, extensive dental caries with gingivitis soft tissue swelling non-fluctuance tenderness to palpation in the #6 and #5 dentition. NECK: Supple, trachea midline. No JVD or lymphadenopathy. No masses. CARDIOVASCULAR: Regular rate and rhythm without murmurs, gallops, or rubs. RESPIRATORY: Breath sounds equal bilaterally. No accessory muscle use. GASTROINTESTINAL: Abdomen soft, non-tender, nondistended. MUSCULOSKELETAL: No cyanosis, or edema. BACK: Nontender without obvious deformity. No CVA tenderness. Data Data Last Documented VS Vital Signs Date Time Temp Pulse Resp B/P (MAP) Pulse Ox O2 Delivery O2 Flow Rate FiO2 02/23/17 20:54 98.3 109 20 135/86 (102) Orders Orders Blood Glucose (02/23/17 21:11) Penicillin V Potassium (Veetids) (02/23/17 21:15) Tramadol (Ultram) (02/23/17 21:30) MDM Medical Decision Making Medical Screen Exam Complete: Yes Emergency Medical Condition: Yes Medical Record Reviewed: Yes Differential Diagnosis Dentalgia dental abscess infected dental caries uncontrolled diabetes DKA Narrative Course Patient given dose of penicillin VK 500 mg by mouth and tramadol 50 mg x 1 dose BGM: 332--patient reports ate food just before arriving and hasn't taken his insulin and does not want insulin administered in the ED--reports will take his evening dose at home Patient is otherwise stable for outpatient management and follow-up with dentist call office in a.m. Diagnosis Primary Impression: Dentalgia Additional Impressions: Infected dental caries Diabetes Referrals: [facility] 1 day Dentist call for appointment [facility] call for appointment Patient Instructions: General Instructions Additional Instructions: Increase fluid hydration Continues to take insulin as prescribed Follow-up with primary care provider call office to schedule appointment or through the [facility] or through [facility] Complete course of antibiotic as prescribed Take weight-based ibuprofen as needed for pain associated with inflammation for fever 100.4F or greater Take acetaminophen/Tylenol as needed for minor pain or for fever Return to emergency department for any concerns or change in condition Follow-up with dentist Med/Other Pt SpecificInfo: Prescription(s) given Scripts Penicillin V Potassium (Penicillin V Potassium) 500 Mg Tab 500 MG PO Q6H for Infection for 10 Days, #40 TAB 0 Refills Prov: Kailyn Mays MD 02/23/17 Tramadol (Tramadol) 50 Mg Tab 50 MG PO Q6H Y for PAIN, #10 TAB 0 Refills Prov: Kailyn Mays MD 02/23/17 Ibuprofen (Ibuprofen) 800 Mg Tab 800 MG PO Q8H Y for PAIN GREATER THAN 5, #12 TAB 0 Refills Prov: Kailyn Mays MD 02/23/17 Kailyn Mays MD Feb 23, 2017 21:25
[2017-02-23] MEDS ORDERED: traMADol HCL 50 MG TAB PO ONE (21:30)
== END 2017-02-23 21:35 | disposition home or self-care (01) ==
LOC: PHEFT 20:46
DX: K08.89 Other specified disorders of teeth and supporting structures (principal); K02.9 Dental caries, unspecified; K04.7 Periapical abscess without sinus; E11.9 Type 2 diabetes mellitus without complications; F17.200 Nicotine dependence, unspecified, uncomplicated; Z79.4 Long term (current) use of insulin
CPT/HCPCS: 99283

== ENCOUNTER 2017-03-25 22:20 | Emergency (ER) | payer SELFPAY ==
[~2017-03-25] VITALS: Ht 190.5 cm; Wt 88.0 kg
[~2017-03-25 22:20] MED LIST changes: +IBUP1TAB5 PO; +IBUP1TAB7 PO; +PENI500T PO; +TRAM50TA PO; +TYLE325T PO
[2017-03-25 22:25] VITALS: BP 146/96; PULSE 104; TEMP 97.7; O2SAT 98
[2017-03-25] MEDS ORDERED: NABU1TAB37 PO (22:48)
[2017-03-25] MEDS ORDERED: CLIN300C5 PO (22:48)
--- NOTE | 2017-03-25 22:49 | PD ---
HPI . Toothache Chief Complaint: Oral / Dental Pain or Problem Time Seen by Provider: 22:42 Travel History International Travel<30 days: No Contact w/Intl Traveler<30days: No Traveled to known affect area: No History of Present Illness HPI Presents with chief complaint of a toothache. Onset yesterday. It is his right jaw. He states that he has taken ibuprofen and has used Orajel without relief. He rates the pain 10/10. There are no modifying factors. He admits that he has not been to the dentist in a long time. PFSH Past Medical History Diabetes: Yes Patient Takes Glucophage: No Diminished Hearing: No Immunizations Current: No Tetanus Vaccination: < 5 Years Influenza Vaccination: No Social History Alcohol Use: No Tobacco Use: Yes (1PPD) Substance Use: No Allergies-Medications (Allergen,Severity, Reaction): Coded Allergies: No Known Allergies (Verified Adverse Reaction, Unknown, 03/25/17) Reported Meds & Prescriptions Reported Meds & Active Scripts Active Novolin R Inj (Insulin Human Regular) 1,000 Unit/10 Ml Vial 0 SQ DIRECTED Sliding Scale As Directed. Review of Systems Except as stated in HPI: all other systems reviewed are Neg General / Constitutional: No: Fever, Chills HENT: Positive: Dental Difficulties Physical Exam Narrative GENERAL: Awake and alert and in no acute distress. SKIN: Warm and dry. No redness, warmth or swelling. HEAD: Normocephalic/atraumatic. No facial swelling. EYES: Pupils are equal. Extraocular movements are intact. ENT: Extremely poor dentition. I believe that all of his teeth had deep caries and many of his teeth are rotten all the way down to the gumline. NECK: Normal range of motion. No cervical lymphadenopathy. CARDIOVASCULAR: Regular rate and rhythm. RESPIRATORY: Nonlabored respirations. MUSCULOSKELETAL: Atraumatic. NEUROLOGICAL: Nonfocal. PSYCHIATRIC: Appropriate mood and affect. Data Data Last Documented VS Vital Signs Date Time Temp Pulse Resp B/P (MAP) Pulse Ox O2 Delivery O2 Flow Rate FiO2 03/25/17 22:37 (113) 03/25/17 22:25 97.7 104 98 MDM Medical Decision Making Medical Screen Exam Complete: Yes Emergency Medical Condition: Yes Differential Diagnosis Differential diagnosis of a toothache includes but is not limited to dental caries, dental abscess, gingivitis, drug-seeking behavior. Narrative Course This patient presents with dental pain. He has extremely poor dental hygiene. I have given him a prescription for clindamycin and Relafen. He needs to see a dentist. Diagnosis Primary Impression: Dentalgia Patient Instructions: General Instructions, Toothache (ED) Med/Other Pt SpecificInfo: Prescription(s) given Scripts Nabumetone (Nabumetone) 500 Mg Tab 500 MG PO BID for Pain-Inflammation, #60 TAB 0 Refills Prov: Margarita Salas MD 03/25/17 Clindamycin (Clindamycin) 300 Mg Cap 300 MG PO TID for Infection, #21 CAP 0 Refills Prov: Margarita Salas MD 03/25/17 Disposition: 01 DISCHARGE HOME Condition: Stable Margarita Salas MD Mar 25, 2017 22:49
[2017-03-25] MEDS ORDERED: CLINDAMYCIN 150 MG CAP PO ONE (23:00)
[2017-03-25] MEDS ORDERED: KETOROLAC TROMETHAMINE 60 MG/2 ML (IM) VIAL IM ONE (23:00)
== END 2017-03-25 23:06 | disposition home or self-care (01) ==
LOC: PHEFT 22:20
DX: K08.89 Other specified disorders of teeth and supporting structures (principal); F17.200 Nicotine dependence, unspecified, uncomplicated; E11.9 Type 2 diabetes mellitus without complications; Z79.4 Long term (current) use of insulin
CPT/HCPCS: 99284; J1885

== ENCOUNTER 2017-05-18 19:27 | Inpatient (IN) | payer MEDICAID ==
[~2017-05-18] VITALS: Ht 188 cm; Wt 81.0 kg
[~2017-05-18 19:27] MED LIST changes: +CLIN300C5 PO; -IBUP1TAB5 PO; -IBUP1TAB7 PO; -LANTUS2P SQ; +NABU1TAB37 PO; -PENI500T PO; -TRAM50TA PO; -TYLE325T PO
[2017-05-18 19:38] VITALS: BP 110/73; PULSE 145; RESP 22; TEMP 97.6; O2SAT 97
[2017-05-18] MEDS ORDERED: SODIUM CHLOR 0.9% 1000 ML INJ 1,000 ML IV ONE ×2 (19:50→20:20)
[2017-05-18] MEDS ORDERED: PANTOPRAZOLE SODIUM 40 MG VIAL IV PUSH ONE (20:00)
[2017-05-18] MEDS ORDERED: ONDANSETRON HCL 4 MG/2 ML VIAL IV PUSH ONE (20:00)
[2017-05-18] MEDS ORDERED: SODIUM CHLORIDE 0.9% FLUSH 10 ML FLUSH IVF PRN (20:00)
--- NOTE | 2017-05-18 20:00 | PD ---
HPI Chief Complaint: GI Complaint Time Seen by Provider: 19:50 Travel History International Travel<30 days: No Contact w/Intl Traveler<30days: No Traveled to known affect area: No History of Present Illness HPI 26-year-old male presents to the emergency department by private transportation for complaint of nausea vomiting and abdominal pain multiple times since late Friday evening or early Friday morning. Patient states he is recently exposed to several family members with stomach virus with vomiting and diarrhea. Patient states over the past 2 days he is vomited approximately 20 times and had approximately 10 episodes of watery diarrhea stool. No fever no chills no abdominal pain. Patient has noted some coffee-ground emesis. No bilious emesis no hematemesis no melena hematochezia. No dietary indiscretion, no well water ingestion, and no foreign travel. Patient states that he is a type I diabetic since age of 17. Patient states due to multiple episodes of vomiting with poor oral intake he has decreased his insulin intake. Patient is been taking clear liquids and drinking Sprite to try to provide some nutritional intake as well as fluid hydration. Patient denies any respiratory illness symptoms no headache no sore throat no earache no sinus congestion no chest pain has had some shortness of breath. No hemoptysis. Patient denies any dysuria frequency urgency flank pain or hematuria. No joint pain or swelling. Patient admits to tobacco use denies alcohol use or substance use. Patient states 2 hours prior to arrival to the emergency department he checked his blood sugar and it registered as high as severe he administered 20 units of Regular Insulin subcutaneous and due to persistent nausea vomiting decided to come to the emergency room for evaluation. Patient also reports history of hepatitis C prior left foot surgery denies any medication use except insulin and is allergic to no medications. [facility] Past Medical History Narrative Medical Type 1 diabetes, hepatitis C, left foot surgery; tobacco use; nursing notes reviewed Diabetes: Yes Diminished Hearing: No Immunizations Current: No Social History Alcohol Use: No Tobacco Use: Yes (1PPD) Substance Use: No Allergies-Medications (Allergen,Severity, Reaction): Coded Allergies: No Known Allergies (Verified Adverse Reaction, Unknown, 05/18/17) Reported Meds & Prescriptions Reported Meds & Active Scripts Active Nabumetone 500 Mg Tab 500 Mg PO BID Clindamycin (Clindamycin HCl) 300 Mg Cap 300 Mg PO TID Novolin R Inj (Insulin Human Regular) 1,000 Unit/10 Ml Vial 0 SQ DIRECTED Sliding Scale As Directed. Review of Systems Except as stated in HPI: all other systems reviewed are Neg General / Constitutional: No: Fever, Chills Eyes: No: Visual changes HENT: No: Headaches, Lightheadedness, Sore Throat, Congestion, Neck Pain Cardiovascular: No: Chest Pain or Discomfort Respiratory: No: Shortness of Breath Gastrointestinal: Positive: Nausea, Vomiting, Diarrhea, No: Abdominal Pain Genitourinary: No: Urgency, Frequency, Dysuria, Hematuria, Flank Pain Musculoskeletal: Positive: Myalgias, Arthralgias Skin: No Rash Neurologic: Positive: Weakness, No: Dizziness, Syncope, Focal Abnormalities Endocrine: Positive: Polydipsia Hematologic/Lymphatic: No: Easy Bruising Physical Exam Narrative GENERAL: Well-developed well-nourished male in no acute respiratory distress with tachycardia; GCS 15 SKIN: Warm and dry. HEAD: Normocephalic. EYES: No scleral icterus. No injection or drainage. ENT: Mucous membranes dry airway is patent. NECK: Supple, trachea midline. No JVD or lymphadenopathy. No meningismus no nuchal rigidity. CARDIOVASCULAR: Increased Regular rate and rhythm without murmurs, gallops, or rubs. RESPIRATORY: Breath sounds equal bilaterally. Clear to auscultation bilaterally. No accessory muscle use. GASTROINTESTINAL: Abdomen soft, non-tender, nondistended. No guarding no rebound. MUSCULOSKELETAL: No cyanosis, or edema. BACK: Nontender without obvious deformity. No CVA tenderness. Data Data Last Documented VS Vital Signs Date Time Temp Pulse Resp B/P (MAP) Pulse Ox O2 Delivery O2 Flow Rate FiO2 05/18/17 21:21 100 Room Air 05/18/17 19:38 97.6 145 22 110/73 (85) Orders Orders Electrocardiogram (05/18/17 19:50) Complete Blood Count With Diff (05/18/17 19:50) Comprehensive Metabolic Panel (05/18/17 19:50) Magnesium (Mg) (05/18/17 19:50) Beta Hydroxybutyrate (Acetone) (05/18/17 19:50) Lactic Acid (05/18/17 19:50) Urinalysis - C+S If Indicated (05/18/17 19:50) Blood Culture (05/18/17 19:50) Chest, Single Ap (05/18/17 19:50) Blood Gas Venous (Vbg) (05/18/17 19:50) Blood Glucose (05/18/17 19:50) Ecg Monitoring (05/18/17 19:50) Iv Access Insert/Monitor (05/18/17 19:50) Oximetry (05/18/17 19:50) NPO (05/18/17 19:50) Sodium Chlor 0.9% 1000 Ml Inj (Ns 1000 M (05/18/17 19:50) Sodium Chlor 0.9% 1000 Ml Inj (Ns 1000 M (05/18/17 20:20) Sodium Chloride 0.9% Flush (Ns Flush) (05/18/17 20:00) Troponin I (05/18/17 19:50) Lipase (05/18/17 19:50) Type And Screen (05/18/17 19:50) Ondansetron Inj (Zofran Inj) (05/18/17 20:00) Pantoprazole Inj (Protonix Inj) (05/18/17 20:00) Escalator Attendant / Telemetry LILIA.Q8H (05/18/17 21:07) ^ Insert Iv (05/18/17 21:07) Diet Npo (05/19/17 Breakfast) Sodium Chlor 0.9% 1000 Ml Inj (Ns 1000 M (05/18/17 21:07) Dext 5%-Nacl 0.9% 1000 Ml Inj (D5w-Ns 10 (05/18/17 21:07) Insulin Regular (Iv Infusion) (Novolin R (05/18/17 21:15) Potassium Chlor 40 Meq Premix (Kcl 40 Me (05/18/17 21:15) Potassium Chlor 40 Meq Premix (Kcl 40 Me (05/18/17 21:15) Potassium Chlor 20 Meq Premix (Kcl 20 Me (05/18/17 21:15) Potassium Chlor 20 Meq Premix (Kcl 20 Me (05/18/17 21:15) Potassium Chlor 20 Meq Premix (Kcl 20 Me (05/18/17 21:15) Potassium Chlor 20 Meq Premix (Kcl 20 Me (05/18/17 21:15) Potassium Chlor 20 Meq Premix (Kcl 20 Me (05/18/17 21:15) Potassium Chlor 20 Meq Premix (Kcl 20 Me (05/18/17 21:15) Sodium Bicarbonate 8.4% Inj (Sodium Bica (05/18/17 21:15) Sodium Bicarbonate 8.4% Inj (Sodium Bica (05/18/17 21:15) Sodium Phosphate Inj (Sodium Phosphate I (05/18/17 21:15) Hemoglobin (Hgb) A1c (05/18/17 21:07) Basic Metabolic Panel (Bmp) (05/19/17 02:07) Basic Metabolic Panel (Bmp) (05/19/17 08:07) Basic Metabolic Panel (Bmp) (05/19/17 14:07) Basic Metabolic Panel (Bmp) (05/19/17 20:07) Magnesium (Mg) (05/19/17 02:07) Magnesium (Mg) (05/19/17 08:07) Magnesium (Mg) (05/19/17 14:07) Magnesium (Mg) (05/19/17 20:07) Phosphorus (Po4) (05/19/17 02:07) Phosphorus (Po4) (05/19/17 08:07) Phosphorus (Po4) (05/19/17 14:07) Phosphorus (Po4) (05/19/17 20:07) Beta Hydroxybutyrate (Acetone) (05/19/17 08:07) Beta Hydroxybutyrate (Acetone) (05/19/17 20:07) Admit Order (Ed Use Only) (05/18/17 ) Escalator Attendant / Telemetry LILIA.Q8H (05/18/17 21:23) Activity Bed Rest (05/18/17 21:23) Notify Dr: Other (05/18/17 21:23) Admit To Inpatient (05/18/17 ) Vital Signs (Adult) Q4H (05/18/17 21:22) Activity Oob Ad Charla (05/18/17 21:22) Escalator Attendant / Telemetry .CONTINUOUS (05/18/17 21:22) Intake + Output LILIA.QSHIFT (05/18/17 21:22) Sodium Chloride 0.9% Flush (Ns Flush) (05/18/17 21:30) Sodium Chloride 0.9% Flush (Ns Flush) (05/19/17 09:00) Ondansetron Inj (Zofran Inj) (05/18/17 21:30) Scd Bilateral/Knee High LILIA.BID (05/18/17 21:22) Cal Bilateral/Knee High LILIA.QSHIFT (05/18/17 21:24) Acetaminophen (Tylenol) (05/18/17 21:30) Acetamin-Hydrocod 325-5 Mg (Atkins 5-325 (05/18/17 21:30) Morphine Inj (Morphine Inj) (05/18/17 21:30) Docusate Sodium-Senna (Piedad-Colace) (05/19/17 09:00) Magnesium Hydroxide Liq (Milk Of Magnesi (05/18/17 21:30) Sennosides (Senokot) (05/18/17 21:30) Bisacodyl Supp (Dulcolax Supp) (05/18/17 21:30) Lactulose Liq (Lactulose Liq) (05/18/17 21:30) Inpatient Certification (05/18/17 ) Labs Laboratory Tests Test 05/18/17 20:10 05/18/17 20:49 White Blood Count 12.0 TH/MM3 Red Blood Count 5.84 MIL/MM3 Hemoglobin 18.7 GM/DL Hematocrit 55.5 % Mean Corpuscular Volume 94.9 FL Mean Corpuscular Hemoglobin 32.0 PG Mean Corpuscular Hemoglobin Concent 33.7 % Red Cell Distribution Width 13.1 % Platelet Count 319 TH/MM3 Mean Platelet Volume 6.4 FL Neutrophils (%) (Auto) 86.9 % Lymphocytes (%) (Auto) 9.1 % Monocytes (%) (Auto) 3.8 % Eosinophils (%) (Auto) 0.0 % Basophils (%) (Auto) 0.2 % Neutrophils # (Auto) 10.4 TH/MM3 Lymphocytes # (Auto) 1.1 TH/MM3 Monocytes # (Auto) 0.5 TH/MM3 Eosinophils # (Auto) 0.0 TH/MM3 Basophils # (Auto) 0.0 TH/MM3 CBC Comment DIFF FINAL Differential Comment Blood Urea Nitrogen 21 MG/DL Creatinine 1.90 MG/DL Random Glucose 288 MG/DL Total Protein 9.5 GM/DL Albumin 4.0 GM/DL Calcium Level 9.3 MG/DL Magnesium Level 2.8 MG/DL Alkaline Phosphatase 188 U/L Aspartate Amino Transf (AST/SGOT) 11 U/L Alanine Aminotransferase (ALT/SGPT) 28 U/L Total Bilirubin 0.5 MG/DL Sodium Level 138 MEQ/L Potassium Level 4.9 MEQ/L Chloride Level 102 MEQ/L Carbon Dioxide Level 11.9 MEQ/L Anion Gap 24 MEQ/L Estimat Glomerular Filtration Rate 43 ML/MIN Lactic Acid Level 3.4 mmol/L Troponin I LESS THAN 0.02 NG/ML Lipase 49 U/L B-Hydroxybutyrate 8.99 MMOL/L Blood Gas Puncture Site PIV Blood Gas Patient Temperature 98.6 Venous Blood pH 7.24 Venous Blood Partial Pressure CO2 33 mmHg Venous Blood Partial Pressure O2 31 mmHg Venous Blood HCO3 14 mmol/L Venous Blood Oxygen Saturation 53 % Venous Blood Oxygen Content 11.7 Vol % Venous Blood Base Excess -12.2 mmol/L Oxygen Delivery Device RA Blood Gas Inspired Oxygen 21 % MDM Medical Decision Making Medical Screen Exam Complete: Yes Emergency Medical Condition: Yes Medical Record Reviewed: Yes Interpretation(s) EKG normal sinus rhythm rate 90 nonspecific T wave changes no acute ST elevation. CBC & BMP Diagram 05/18/17 20:10 Total Protein 9.5 H, Albumin 4.0, Calcium Level 9.3, Magnesium Level 2.8 H, Alkaline Phosphatase 188 H, Aspartate Amino Transf (AST/SGOT) 11 L, Alanine Aminotransferase (ALT/SGPT) 28, Total Bilirubin 0.5 Vital Signs Date Time Temp Pulse Resp B/P (MAP) Pulse Ox O2 Delivery O2 Flow Rate FiO2 05/18/17 19:38 97.6 145 22 110/73 (85) 97 VBG: pH 7.24 Differential Diagnosis Gastroenteritis, food borne illness, DKA, hyperglycemia/uncontrolled diabetes, dehydration, electrolyte disturbance, sepsis, acute gastritis/PUD Narrative Course Patient placed on cardiac catheterization technologist with continuous pulse oximetry; IV access obtained; bedside glucose 248; 2 L of normal saline ordered, specimens collected and sent for resulting, patient administered Zofran 4 mg IV and Protonix 40 mg IV Patient with heart rate of 98 blood pressure stable after 2 L of normal saline additional liter of normal saline administered venous pH 7.24 patient will be admitted for DKA chemistries now resulted and serum glucose 288 with bicarbonate of 12 and anion gap of 24. Creatinine elevated 21/1.90 potassium is 4.9, magnesium is elevated 2.8 patient's total protein is 9.5 patient is obviously markedly dehydrated; troponin I is less than 0.02, not elevated: lactic acid is also elevated at 3.4 this will be repeated 2 hours for sepsis protocol after hydration; patient will be placed on DKA protocol without bolus due to initial for random glucose of 248) of 288 prior to IV fluid hydration. Call placed to have his service for ICU admission EKG is sinus rhythm rate 90 nonspecific T-wave abnormality no acute ST elevation or injury pattern change noted Physician Communication Physician Communication call placed to [facility] service for admission; discussed with Dr Montoya accepted for ICU admit for DKA w protocol Diagnosis Primary Impression: DKA (diabetic ketoacidoses) Additional Impressions: Type 1 diabetes mellitus Gastroenteritis Admitting Information Admitting Physician Requests: Admit Kailyn Mays MD May 18, 2017 20:00
[2017-05-18 20:27] LABS: AUTOMATED NEUTROPHIL # 10.4 TH/MM3 (1.8-7.7); BASOPHIL % 0.2 % (0.0-2.0); HEMATOCRIT 55.5 % (39.0-51.0); HEMOGLOBIN 18.7 GM/DL (13.0-17.0); LYMPH % 9.1 % (9.0-44.0); LYMPHOCYTE # 1.1 TH/MM3 (1.0-4.8); MEAN CELL VOLUME 94.9 FL (80.0-100.0); MEAN CORPUSCULAR HGB CONC 33.7 % (32.0-36.0); MEAN PLATELET VOLUME 6.4 FL (7.0-11.0); MONO % 3.8 % (0.0-8.0); MONOCYTE # 0.5 TH/MM3 (0-0.9); NEUT % 86.9 % (16.0-70.0); PLATELET COUNT 319 TH/MM3 (150-450); RED BLOOD COUNT 5.84 MIL/MM3 (4.50-5.90); RED CELL DISTRIBUTION WIDTH 13.1 % (11.6-17.2)
[2017-05-18 20:30] VITALS: BP 105/55; PULSE 120; RESP 18; O2SAT 98
[2017-05-18 20:45] LABS: CHLORIDE 102 MEQ/L (98-107); SODIUM (NA) 138 MEQ/L (136-145)
[2017-05-18 20:48] LABS: CALCIUM 9.3 MG/DL (8.5-10.1)
[2017-05-18 20:49] LABS: BICARBONATE 11.9 MEQ/L (21.0-32.0); BLOOD UREA NITROGEN 21 MG/DL (7-18); GLUCOSE,RANDOM 288 MG/DL (74-106); LIPASE 49 U/L (73-393); MAGNESIUM 2.8 MG/DL (1.5-2.5)
[2017-05-18 20:52] LABS: ALT (GPT) 28 U/L (12-78); AST (GOT) 11 U/L (15-37); GLOMERULAR FILTRATION RATE 43 ML/MIN (>89)
[2017-05-18 20:53] LABS: TOTAL BILIRUBIN ADULT 0.5 MG/DL (0.2-1.0); TOTAL PROTEIN 9.5 GM/DL (6.4-8.2)
[2017-05-18 20:54] LABS: ALKALINE PHOSPHATASE 188 U/L (45-117)
[2017-05-18 20:57] LABS: TROPONIN I LESS THAN 0.02 NG/ML (0.02-0.05)
[2017-05-18] MEDS: SODIUM CHLOR 0.9% 1000 ML INJ 1,000 ML IV SCH (21:07)
[2017-05-18] MEDS ORDERED: SODIUM PHOSPHATE INJ 15 MMOL in SODIUM CHLORIDE 0.9% INJ 100 ML IV PRN (21:15)
[2017-05-18] MEDS ORDERED: SODIUM BICARBONATE 8.4% SOLN 50 MEQ/50 ML VIAL IV PUSH PRN ×2 (21:15)
[2017-05-18] MEDS ORDERED: POTASSIUM CHLOR 40 MEQ PREMIX 100 ML IV PRN ×2 (21:15)
[2017-05-18] MEDS ORDERED: POTASSIUM CHLOR 20 MEQ PREMIX 100 ML IV PRN ×5 (21:15)
[2017-05-18] MEDS ORDERED: INSULIN REGULAR (IV INFUSION) 100 UNITS in SODIUM CHLORIDE 0.9% INJ 99 ML IV PRN (21:15)
[2017-05-18 21:21] VITALS: O2SAT 100
[2017-05-18 21:30] VITALS: BP 110/63; PULSE 98; RESP 18; O2SAT 97
[2017-05-18] MEDS ORDERED: BISACODYL 10 MG SUPP RECTAL PRN (21:30)
[2017-05-18] MEDS ORDERED: ACETAMINOPHEN/HYDROcodone 325 MG/5 MG TAB PO PRN (21:30)
[2017-05-18] MEDS ORDERED: MORPHINE SULFATE 2 MG/ML INJ IV PUSH PRN (21:30)
[2017-05-18] MEDS ORDERED: ONDANSETRON HCL 4 MG/2 ML VIAL IVP PRN (21:30)
[2017-05-18] MEDS ORDERED: SODIUM CHLORIDE 0.9% FLUSH 10 ML FLUSH IV FLUSH PRN (21:30)
[2017-05-18] MEDS ORDERED: SENNOSIDES 8.6 MG TAB PO PRN (21:30)
[2017-05-18] MEDS ORDERED: ACETAMINOPHEN 325 MG TAB PO PRN (21:30)
[2017-05-18] MEDS ORDERED: LACTULOSE SYRUP 20 GM/30 ML CUP PO PRN (21:30)
[2017-05-18] MEDS ORDERED: MAGNESIUM HYDROXIDE SUSP 30 ML CUP PO PRN (21:30)
--- NOTE | 2017-05-18 21:35 | RADRPT ---
EXAM DATE/TIME: 05/18/2017 21:17 [place] COMPARISON: No previous studies available for comparison. INDICATIONS : Chest pain and vomiting for about 2 days. MEDICAL HISTORY : Diabetes SURGICAL HISTORY : Left foot surgery. ENCOUNTER: Initial ACUITY: 2 days PAIN SCORE: 10/10 LOCATION: Left chest FINDINGS: A single view of the chest demonstrates the lungs to be symmetrically aerated without evidence of mas s, infiltrate or effusion. The cardiomediastinal contours are unremarkable. Osseous structures are intact. CONCLUSION: No evidence of acute cardiopulmonary disease. Samson Sheppard MD on May 18, 2017 at 21:32 Board Certified Radiologist. This report was verified electronically.
[2017-05-18] MEDS: DEXT 5%-NACL 0.9% 1000 ML INJ 1,000 ML IV SCH (21:58)
[2017-05-18 22:45] VITALS: BP 103/68; PULSE 103; RESP 18; O2SAT 98
[2017-05-18 23:27] LABS: BLOOD, URINE NEG (NEG); GLUCOSE,URINE 500 mg/dL (NEG); KETONE, URINE 80 OR GREATER mg/dL (NEG); NITRITE,URINE NEG (NEG); URINE LEUKOCYTE ESTERASE NEG (NEG)
[2017-05-19] VITALS (23 sets, daily range): BP systolic 94–140; BP diastolic 48–76; PULSE 72–108; RESP 11–30; TEMP 97.6–98.5; O2SAT 97–99
[2017-05-19 00:06] LABS: BILIRUBIN, URINE NEG (NEG)
[2017-05-19 00:12] LABS: URINE COLOR YELLOW (YELLW/STRAW)
[2017-05-19 00:13] LABS: MUCUS URINE OCC /lpf (OCC); RBC, URINE 0-3 /hpf (0-3)
[2017-05-19 00:14] LABS: SQUAMOUS EPITHELIAL CELL URINE 0-5 /hpf (0-5); WBC, URINE 0-2 /hpf (0-5)
[2017-05-19 00:26] LABS: BICARBONATE 20.6 MEQ/L (21.0-32.0); CREATININE 1.3 MG/DL (0.60-1.30); MAGNESIUM 2.2 MG/DL (1.5-2.5); PHOSPHORUS 1.1 MG/DL (2.5-4.9)
[2017-05-19] MEDS: POTASSIUM CHLOR 20 MEQ PREMIX 100 ML IV PRN ×2 (00:43→02:34)
[2017-05-19] MEDS: SODIUM CHLOR 0.9% 1000 ML INJ 1,000 ML IV SCH ×3 (01:07→09:07)
[2017-05-19] MEDS ORDERED: CHLORHEXIDINE GLUCONATE 2 % 1 PACK (2 CLOTHS)(extra cloths) TOPICAL PRN (01:15)
[2017-05-19] MEDS: DEXT 5%-NACL 0.9% 1000 ML INJ 1,000 ML IV SCH ×2 (02:47→07:07)
[2017-05-19] MEDS ORDERED: CHLORHEXIDINE GLUCONATE 2 % 1 PACK (2 CLOTHS)(taper/protocol) TOPICAL SCH (04:00)
[2017-05-19 04:52] LABS: PHOSPHORUS 2.3 MG/DL (2.5-4.9)
[2017-05-19 05:59] LABS: BICARBONATE 15.1 MEQ/L (21.0-32.0); CALCIUM 7.7 MG/DL (8.5-10.1); CREATININE 1.1 MG/DL (0.60-1.30)
[2017-05-19] MEDS ORDERED: DOCUSATE SODIUM 50 MG/SENNA 8.6 MG TAB PO SCH (09:00)
[2017-05-19] MEDS ORDERED: SODIUM CHLORIDE 0.9% FLUSH 10 ML FLUSH IV FLUSH SCH (09:00)
--- NOTE | 2017-05-19 09:30 | HHI.HP ---
[facility] Primary Care Physician Admission Diagnosis DKA Diagnoses: Chief Complaint: Nausea vomiting diarrhea Travel History International Travel<30 Days: No Contact w/Intl Traveler <30 Da: No Traveled to Known Affected Are: No History of Present Illness 26-year-old white male being admitted for diabetic ketoacidosis Patient was in his usual state of health until about 3 days goes ago when he began experiencing diarrhea followed by nausea vomiting. His symptoms persisted over the next few days and his vomiting eventually did demonstrate some coffee ground emesis but no bright red blood. He does not report any unusual changes in his stool either except for the fact that there were watery and they began to gradually ease up. He did reports the emergency room physician that he did check his meter that a read too high and gave himself some further insulin as well. He does report having some associated mild abdominal pain which is gone now. Patient does report that his sister and his nieces and nephews all had similar symptoms prior to the onset of his symptoms and he was in close contact with them recently. In the emergency room his pH was noted to be 7.2 for an had elevated beta hydroxybutyrate in his blood. He was admitted for diabetic ketoacidosis. Patient states that he's had diabetic education before and is not interested in hearing it again. He states that he manages his sugars with a high dose sliding scale only; says he was prescribed some long-acting insulin but says he cannot afford it. Medical history includes hepatitis C. Review of Systems Except as stated in HPI: all other systems reviewed are Neg Past Family Social History Past Medical History multiple DKA admissions Past Surgical History left foot surgery Allergies: Coded Allergies: No Known Allergies (Verified Adverse Reaction, Unknown, 05/18/17) Family History family hx of lung cancer, cousin w/ from complications at age 38 Social History smokes PPD, used to do IVD in the past Physical Exam Vital Signs Vital Signs Date Time Temp Pulse Resp B/P (MAP) Pulse Ox O2 Delivery O2 Flow Rate FiO2 05/19/17 06:30 88 13 112/71 (85) 99 05/19/17 06:00 92 05/19/17 06:00 102 19 113/63 (80) 99 05/19/17 05:30 92 13 105/53 (70) 99 05/19/17 05:00 86 13 94/48 (63) 99 05/19/17 04:30 90 14 100/55 (70) 99 05/19/17 04:00 99 05/19/17 04:00 98.5 90 15 116/60 (78) 99 05/19/17 03:00 96 14 121/76 (91) 99 05/19/17 02:30 94 14 101/51 (68) 99 05/19/17 02:00 95 05/19/17 02:00 92 13 111/58 (75) 99 05/19/17 01:30 98 17 118/69 (85) 99 05/19/17 01:25 98 17 140/74 (96) 99 05/19/17 00:01 13 05/19/17 00:00 98.0 102 15 115/65 (82) 99 05/18/17 23:25 05/18/17 22:45 103 18 103/68 (80) 98 Room Air 05/18/17 21:30 98 18 110/63 (79) 97 Room Air 05/18/17 21:21 100 Room Air 05/18/17 20:30 120 18 105/55 (72) 98 Room Air 05/18/17 19:38 97.6 145 22 110/73 (85) 97 Physical Exam VS: afebrile GENERAL: NAD, well-nourished male, awake SKIN: Warm and dry. EYES: Pupils equal and round. No scleral icterus. No injection or drainage. ENT: No nasal bleeding or discharge. Mucous membranes pink and moist. CARDIOVASCULAR: Regular rate and rhythm. no murmurs RESPIRATORY: No accessory muscle use. Clear to auscultation. Breath sounds equal bilaterally. GASTROINTESTINAL: Abdomen soft, non-tender, nondistended. pable. Extremities: No clubbing, cyanosis, or edema. No obvious deformities. MUSCULOSKELETAL: adequate muscle bulk and tone for age and habitus NEUROLOGICAL: Awake and alert. No obvious cranial nerve deficits. No facial droop nor slurred speech noted. PSYCHIATRIC: Appropriate mood and affect; insight and judgment normal. Laboratory Laboratory Tests Test 05/18/17 20:10 05/18/17 20:49 05/18/17 23:00 05/18/17 23:27 White Blood Count 12.0 Red Blood Count 5.84 Hemoglobin 18.7 Hematocrit 55.5 Mean Corpuscular Volume 94.9 Mean Corpuscular Hemoglobin 32.0 Mean Corpuscular Hemoglobin Concent 33.7 Red Cell Distribution Width 13.1 Platelet Count 319 Mean Platelet Volume 6.4 Neutrophils (%) (Auto) 86.9 Lymphocytes (%) (Auto) 9.1 Monocytes (%) (Auto) 3.8 Eosinophils (%) (Auto) 0.0 Basophils (%) (Auto) 0.2 Neutrophils # (Auto) 10.4 Lymphocytes # (Auto) 1.1 Monocytes # (Auto) 0.5 Eosinophils # (Auto) 0.0 Basophils # (Auto) 0.0 CBC Comment DIFF FINAL Differential Comment Blood Urea Nitrogen 21 Creatinine 1.90 Random Glucose 288 Total Protein 9.5 Albumin 4.0 Calcium Level 9.3 Magnesium Level 2.8 Alkaline Phosphatase 188 Aspartate Amino Transf (AST/SGOT) 11 Alanine Aminotransferase (ALT/SGPT) 28 Total Bilirubin 0.5 Sodium Level 138 Potassium Level 4.9 Chloride Level 102 Carbon Dioxide Level 11.9 Anion Gap 24 Estimat Glomerular Filtration Rate 43 Lactic Acid Level 3.4 Troponin I LESS THAN 0.02 Lipase 49 B-Hydroxybutyrate 8.99 Blood Gas Puncture Site PIV Blood Gas Patient Temperature 98.6 Venous Blood pH 7.24 Venous Blood Partial Pressure CO2 33 Venous Blood Partial Pressure O2 31 Venous Blood HCO3 14 Venous Blood Oxygen Saturation 53 Venous Blood Oxygen Content 11.7 Venous Blood Base Excess -12.2 Oxygen Delivery Device RA Blood Gas Inspired Oxygen 21 Urine Color YELLOW Urine Turbidity CLEAR Urine pH 6.0 Urine Specific Temple 1.024 Urine Protein 30 Urine Glucose (UA) 500 Urine Ketones 80 OR GREATER Urine Occult Blood NEG Urine Nitrite NEG Urine Bilirubin NEG Urine Leukocyte Esterase NEG Urine RBC 0-3 Urine WBC 0-2 Urine Squamous Epithelial Cells 0-5 Urine Hyaline Casts 10-14 Urine Mucus OCC Microscopic Urinalysis Comment CULT NOT INDICATED Nasal Screen MRSA (PCR) MRSA NOT DETECTED Test 05/18/17 23:35 05/19/17 04:13 05/19/17 08:40 Blood Urea Nitrogen 17 15 Creatinine 1.30 1.10 Random Glucose 110 370 Calcium Level 8.0 7.7 Phosphorus Level 1.1 2.3 Magnesium Level 2.2 2.0 Sodium Level 142 137 Potassium Level 4.1 4.7 Chloride Level 110 106 Carbon Dioxide Level 20.6 15.1 Anion Gap 11 16 Estimat Glomerular Filtration Rate 66 80 B-Hydroxybutyrate 7.74 Date/Time Source Procedure Growth Status 05/18/17 20:10 Blood Peripheral Aerobic Blood Culture Pending Received 05/18/17 20:10 Blood Peripheral Anaerobic Blood Culture Pending Received Result Diagram: 05/18/17200905/19/17 0413 Caprini VTE Risk Assessment Caprini VTE Risk Assessment: No/Low Risk (score <= 1) Caprini Risk Assessment Model Point Value = 1 Point Value = 2 Point Value = 3 Point Value = 5 Age 41-60 Minor surgery BMI > 25 kg/m2 Swollen legs Varicose veins or History of unexplained or recurrent spontaneous Oral contraceptives or hormone replacement Sepsis (< 1 month) Serious lung disease, including pneumonia (< 1 month) Abnormal pulmonary function Acute myocardial infarction Congestive heart failure (< 1 month) History of inflammatory bowel disease Medical patient at bed rest Age 61-74 Arthroscopic surgery Major open surgery (> 45 min) Laparoscopic surgery (> 45 min) Malignancy Confined to bed (> 72 hours) Immobilizing plaster cast Central venous access Age >= 75 History of VTE Family history of VTE Factor V Leiden Prothrombin 13832C Lupus anticoagulant Anticardiolipin antibodies Elevated serum homocysteine Heparin-induced thrombocytopenia Other congenital or acquired thrombophilia Stroke (< 1 month) Elective arthroplasty Hip, pelvis, or leg fracture Acute spinal cord injury (< 1 month) Prophylaxis Regimen Total Risk Factor Score Risk Level Prophylaxis Regimen 0-1 Low Early ambulation 2 Moderate Order ONE of the following: *Sequential Compression Device (SCD) *Heparin 5000 units SQ BID 3-4 Higher Order ONE of the following medications: *Heparin 5000 units SQ TID *Enoxaparin/Lovenox 40 mg SQ daily (WT < 150 kg, CrCl > 30 mL/min) *Enoxaparin/Lovenox 30 mg SQ daily (WT < 150 kg, CrCl > 10-29 mL/min) *Enoxaparin/Lovenox 30 mg SQ BID (WT < 150 kg, CrCl > 30 mL/min) AND/OR *Sequential Compression Device (SCD) 5 or more Highest Order ONE of the following medications: *Heparin 5000 units SQ TID (Preferred with Epidurals) *Enoxaparin/Lovenox 40 mg SQ daily (WT < 150 kg, CrCl > 30 mL/min) *Enoxaparin/Lovenox 30 mg SQ daily (WT < 150 kg, CrCl > 10-29 mL/min) *Enoxaparin/Lovenox 30 mg SQ BID (WT < 150 kg, CrCl > 30 mL/min) AND *Sequential Compression Device (SCD) Assessment and Plan Assessment and Plan Diabetic ketoacidosis - Admitted to the ICU, continue telemetry, continue DKA protocol with as needed by arnold andrea. Gap was initially improving but is starting to worse, continue IV insulin drip and discontinuing the patient's diet for the time being. - We'll hold off on diabetic education since the patient is not interested in this at this time. We'll need case management assistance with getting medications as he is interested in being able to access his medicines as an outpatient. Nausea vomiting - Likely was multifactorial from DKA plus a viral gastroenteritis which appears to be improving since the patient did actually tolerate some dinner last night and breakfast this morning even though ideally he should have been restricted from a by mouth diet until his gap had closed. antiemetics as needed. Physician Certification 2 Midnight Certification Type: Admission for Inpatient Services Order for Inpatient Services The services are ordered in accordance with Medicare regulations or non- Medicare payer requirements, as applicable. In the case of services not specified as inpatient-only, they are appropriately provided as inpatient services in accordance with the 2-midnight benchmark. Estimated LOS (days): 2 2 days is the estimated time the patient will need to remain in the hospital, assuming treatment plan goals are met and no additional complications. Post-Hospital Plan: Home Elvin Doran MD May 19, 2017 09:30
[2017-05-19 09:57] LABS: BLOOD UREA NITROGEN 13 MG/DL (7-18); CALCIUM 7.8 MG/DL (8.5-10.1); CHLORIDE 105 MEQ/L (98-107); GLOMERULAR FILTRATION RATE 80 ML/MIN (>89); GLUCOSE,RANDOM 270 MG/DL (74-106); MAGNESIUM 2.1 MG/DL (1.5-2.5); PHOSPHORUS 1.1 MG/DL (2.5-4.9); SODIUM (NA) 136 MEQ/L (136-145)
[2017-05-19 14:35] LABS: BICARBONATE 22.6 MEQ/L (21.0-32.0); CALCIUM 7.7 MG/DL (8.5-10.1)
[2017-05-19 14:39] LABS: PHOSPHORUS 1.2 MG/DL (2.5-4.9)
[2017-05-19] MEDS ORDERED: GLUCAGON 1 MG/ML VIAL OTHER PRN (15:30)
[2017-05-19] MEDS ORDERED: DEXTROSE 50% IN WATER 50 ML VIAL(D50) IV PUSH PRN (15:30)
[2017-05-19 16:29] LABS: HEMOGLOBIN A1C 11.8 % (4.3-6.0)
[2017-05-19] MEDS ORDERED: INSULIN ASPART SUPPLEMENTAL SCALE SQ SCH (17:00)
--- NOTE | 2017-05-19 18:48 | EKG ---
Date Performed: 05/18/2017 Time Performed: 20:20:20 PTAGE: 26 years EKG: Sinus rhythm NONSPECIFIC T-WAVE ABNORMALITY BORDERLINE ECG NO PREVIOUS TRACING DOCTOR: Oscar Sterling Interpretating Date/Time 05/19/2017 18:48:00
--- NOTE | 2017-05-19 20:51 | PD.AMA ---
Against Medical Advice Note Discharge Disposition: Against Medical Advice Pt Condition on Discharge: Guarded AMA Statement Patient Casper ElaineJr has decided to leave the hospital against medical advice. This patient has the capacity to refuse care and understands the risks of leaving, including permanent disability and/or , and has had an opportunity to ask questions about his condition. The patient has been informed that he may return for care at any time, and follow up has been arranged/advised. Aysha Colón May 19, 2017 20:51
[2017-05-19] MEDS ORDERED: INSULIN DETEMIR 100 UNITS/ML VIAL SQ SCH (21:00)
== END 2017-05-19 20:32 | disposition left against medical advice (07) | DRG 639 ==
LOC: PHED 19:27 → PHEDA 21:24 → PHICU 23:13
PROVIDERS: ADMIT Hospitalist; ATTEND Hospitalist
DX: E10.10 Type 1 diabetes mellitus with ketoacidosis without coma (principal); A08.4 Viral intestinal infection, unspecified; B19.20 Unspecified viral hepatitis C without hepatic coma; F17.210 Nicotine dependence, cigarettes, uncomplicated; Z80.1 Family history of malignant neoplasm of trachea, bronchus and lung
CPT/HCPCS: 71045; 80048; 80053; 81001; 82010; 82805; 82948; 83036; 83605; 83690; 83735; 84100; 84484; 85025; 86850; 86900; 86901; 87040; 87641; 93005; 96361; 96374; 96375; C9113; J1815; J1817; J2270; J2405; J3480; J7030; J7042

== ENCOUNTER 2017-05-29 23:01 | Observation (INO) | payer SELFPAY ==
[~2017-05-29] VITALS: Ht 190.5 cm; Wt 85.6 kg
[2017-05-29 23:12] VITALS: BP 118/78; PULSE 66; RESP 20; TEMP 97.5; O2SAT 100
[2017-05-29] MEDS ORDERED: SODIUM CHLOR 0.9% 1000 ML INJ 1,000 ML IV ONE (23:40)
[2017-05-29 23:43] VITALS: BP 118/78; PULSE 66; RESP 20; TEMP 97.5; O2SAT 100
[2017-05-29] MEDS ORDERED: INSULIN HUMAN REGULAR 1,000 UNITS/10 ML VIAL IV PUSH ONE (23:45)
[2017-05-29] MEDS ORDERED: SODIUM CHLORIDE 0.9% FLUSH 10 ML FLUSH IVF PRN (23:45)
[2017-05-29 23:47] VITALS: O2SAT 96
[2017-05-29 23:57] LABS: BILIRUBIN, URINE NEG (NEG); BLOOD, URINE NEG (NEG); GLUCOSE,URINE 1000 OR GREATER mg/dL (NEG); KETONE, URINE 40 mg/dL (NEG); NITRITE,URINE NEG (NEG); URINE LEUKOCYTE ESTERASE NEG (NEG)
[2017-05-29 23:59] LABS: AUTOMATED NEUTROPHIL # 2.5 TH/MM3 (1.8-7.7); BASOPHIL % 0.6 % (0.0-2.0); EOSINOPHIL # 0.1 TH/MM3 (0-0.4); EOSINOPHIL % 1.2 % (0.0-4.0); HEMATOCRIT 44.2 % (39.0-51.0); HEMOGLOBIN 14.6 GM/DL (13.0-17.0); LYMPH % 42.1 % (9.0-44.0); LYMPHOCYTE # 2.2 TH/MM3 (1.0-4.8); MEAN CELL VOLUME 95.1 FL (80.0-100.0); MEAN CORPUSCULAR HEMOGLOBIN 31.5 PG (27.0-34.0); MEAN CORPUSCULAR HGB CONC 33.1 % (32.0-36.0); MEAN PLATELET VOLUME 5.9 FL (7.0-11.0); MONO % 6.6 % (0.0-8.0); MONOCYTE # 0.3 TH/MM3 (0-0.9); NEUT % 49.5 % (16.0-70.0); PLATELET COUNT 276 TH/MM3 (150-450); RED BLOOD COUNT 4.64 MIL/MM3 (4.50-5.90); RED CELL DISTRIBUTION WIDTH 13.1 % (11.6-17.2); WHITE BLOOD COUNT 5.1 TH/MM3 (4.0-11.0)
[2017-05-30 00:05] LABS: CHLORIDE 86 MEQ/L (98-107); SODIUM (NA) 125 MEQ/L (136-145)
[2017-05-30 00:08] LABS: RBC, URINE 0-2 /hpf (0-3); URINE COLOR COLORLESS (YELLW/STRAW); WBC, URINE 0-2 /hpf (0-5)
[2017-05-30 00:09] LABS: ALBUMIN 3.5 GM/DL (3.4-5.0); BICARBONATE 25.5 MEQ/L (21.0-32.0); BLOOD UREA NITROGEN 23 MG/DL (7-18); MAGNESIUM 2.4 MG/DL (1.5-2.5); SQUAMOUS EPITHELIAL CELL URINE 0-5 /hpf (0-5)
[2017-05-30 00:12] LABS: ALT (GPT) 32 U/L (12-78); AST (GOT) 26 U/L (15-37); GLOMERULAR FILTRATION RATE 73 ML/MIN (>89)
[2017-05-30 00:13] LABS: TOTAL BILIRUBIN ADULT 0.5 MG/DL (0.2-1.0); TOTAL PROTEIN 7.5 GM/DL (6.4-8.2)
[2017-05-30 00:20] LABS: ALKALINE PHOSPHATASE 124 U/L (45-117)
[2017-05-30 00:21] LABS: GLUCOSE,RANDOM 710 MG/DL (74-106)
--- NOTE | 2017-05-30 00:37 | PD ---
HPI Chief Complaint: Diabetic Time Seen by Provider: 23:40 Travel History International Travel<30 days: No Contact w/Intl Traveler<30days: No Traveled to known affect area: No History of Present Illness HPI The patient is a 26-year-old insulin-dependent diabetic that apparently ran out of his insulin this morning. His blood sugar is now too high for his metered to read. Apparently, the patient is not on any disability and does not work. He states he does not qualify for disability because it is felt he could work. He is fully supported by his mother for food and housing, he lives with his mother. His mother ran out of money to buy him more insulin so he could not refill his insulin. He denies any fever, nausea, vomiting or diarrhea. He denies any cough. PFSH Past Medical History Diabetes: Yes (type one) Diminished Hearing: No Hepatitis: Yes (C) Immunizations Current: No Social History Alcohol Use: No Tobacco Use: Yes (1PPD) Substance Use: No Allergies-Medications (Allergen,Severity, Reaction): Coded Allergies: No Known Allergies (Verified Adverse Reaction, Unknown, 05/18/17) Reported Meds & Prescriptions Reported Meds & Active Scripts Active Novolin R Inj (Insulin Human Regular) 1,000 Unit/10 Ml Vial 0 SQ DIRECTED Sliding Scale As Directed. Review of Systems Except as stated in HPI: all other systems reviewed are Neg Physical Exam Narrative GENERAL: The patient is alert, oriented 3, not tachypneic and does not smell of ketones. His vital signs are normal. He does appear moderately dehydrated. SKIN: Focused skin assessment warm/dry. No skin rash is seen. HEAD: Atraumatic. Normocephalic. EYES: Pupils equal and round. No scleral icterus. No injection or drainage. ENT: No nasal bleeding or discharge. Mucous membranes pink and moist. NECK: Trachea midline. No JVD. There is no meningismus present. CARDIOVASCULAR: Regular rate and rhythm. No murmur appreciated. RESPIRATORY: No accessory muscle use. Clear to auscultation. Breath sounds equal bilaterally. GASTROINTESTINAL: Abdomen soft, non-tender, nondistended. Hepatic and splenic margins not palpable. MUSCULOSKELETAL: No obvious deformities. No clubbing. No cyanosis. No edema. NEUROLOGICAL: Awake and alert. No obvious cranial nerve deficits. Motor grossly within normal limits. Normal speech. PSYCHIATRIC: Appropriate mood and affect; insight and judgment normal. Data Data Last Documented VS Vital Signs Date Time Temp Pulse Resp B/P (MAP) Pulse Ox O2 Delivery O2 Flow Rate FiO2 05/29/17 23:47 96 Room Air 05/29/17 23:45 18 05/29/17 23:43 97.5 66 Orders Orders Complete Blood Count With Diff (05/29/17 23:40) Comprehensive Metabolic Panel (05/29/17 23:40) Magnesium (Mg) (05/29/17 23:40) Beta Hydroxybutyrate (Acetone) (05/29/17 23:40) Lactic Acid (05/29/17 23:40) Urinalysis - C+S If Indicated (05/29/17 23:40) Blood Glucose (05/29/17 23:40) Ecg Monitoring (05/29/17 23:40) Iv Access Insert/Monitor (05/29/17 23:40) Oximetry (05/29/17 23:40) NPO (05/29/17 23:40) Sodium Chloride 0.9% Flush (Ns Flush) (05/29/17 23:45) Sodium Chlor 0.9% 1000 Ml Inj (Ns 1000 M (05/29/17 23:40) Insulin Human Regular Inj (Novolin R Inj (05/29/17 23:45) Place In Observation (05/30/17 ) Vital Signs (Adult) Q4H (05/30/17 01:00) Activity Oob With Assistance (05/30/17 01:00) Bedside Glucose LILIA.CSUGAR (05/30/17 01:00) Diet Diabetic (05/30/17 Breakfast) Sodium Chlor 0.9% 1000 Ml Inj (Ns 1000 M (05/30/17 01:00) Sodium Chloride 0.9% Flush (Ns Flush) (05/30/17 01:00) Sodium Chloride 0.9% Flush (Ns Flush) (05/30/17 09:00) Acetaminophen (Tylenol) (05/30/17 01:00) Ondansetron Inj (Zofran Inj) (05/30/17 01:00) Comprehensive Metabolic Panel (05/31/17 06:00) Complete Blood Count With Diff (05/31/17 06:00) Case Management Consult (05/30/17 01:00) Scd Bilateral/Knee High LILIA.BID (05/30/17 01:00) Naloxone Inj (Narcan Inj) (05/30/17 01:00) Docusate Sodium-Senna (Piedad-Colace) (05/30/17 09:00) Magnesium Hydroxide Liq (Milk Of Magnesi (05/30/17 01:00) Sennosides (Senokot) (05/30/17 01:00) Bisacodyl Supp (Dulcolax Supp) (05/30/17 01:00) Lactulose Liq (Lactulose Liq) (05/30/17 01:00) Insulin Human Regular Inj (Novolin R Inj (05/30/17 01:00) Bedside Glucose LILIA.CSUGAR&03 (05/30/17 01:00) Blood Glucose Goal (Criteria) (05/30/17 01:00) Hypoglycemia 70 Mg/Dl Or < (05/30/17 01:00) Notify Dr: Other (05/30/17 01:00) Dextrose 50% In Robert (Vial) Inj (D50w (Vi (05/30/17 01:00) Glucagon Inj (Glucagon Inj) (05/30/17 01:00) Insulin Aspart Supplemtl Scale (Novolog (05/30/17 08:00) Labs Laboratory Tests Test 05/29/17 23:45 White Blood Count 5.1 TH/MM3 Red Blood Count 4.64 MIL/MM3 Hemoglobin 14.6 GM/DL Hematocrit 44.2 % Mean Corpuscular Volume 95.1 FL Mean Corpuscular Hemoglobin 31.5 PG Mean Corpuscular Hemoglobin Concent 33.1 % Red Cell Distribution Width 13.1 % Platelet Count 276 TH/MM3 Mean Platelet Volume 5.9 FL Neutrophils (%) (Auto) 49.5 % Lymphocytes (%) (Auto) 42.1 % Monocytes (%) (Auto) 6.6 % Eosinophils (%) (Auto) 1.2 % Basophils (%) (Auto) 0.6 % Neutrophils # (Auto) 2.5 TH/MM3 Lymphocytes # (Auto) 2.2 TH/MM3 Monocytes # (Auto) 0.3 TH/MM3 Eosinophils # (Auto) 0.1 TH/MM3 Basophils # (Auto) 0.0 TH/MM3 CBC Comment DIFF FINAL Differential Comment Urine Color COLORLESS Urine Turbidity CLEAR Urine pH 6.0 Urine Specific [place] 1.023 Urine Protein NEG mg/dL Urine Glucose (UA) 1000 OR GREATER mg/dL Urine Ketones 40 mg/dL Urine Occult Blood NEG Urine Nitrite NEG Urine Bilirubin NEG Urine Leukocyte Esterase NEG Urine RBC 0-2 /hpf Urine WBC 0-2 /hpf Urine Squamous Epithelial Cells 0-5 /hpf Urine Bacteria NONE /hpf Microscopic Urinalysis Comment CULT NOT INDICATED Blood Urea Nitrogen 23 MG/DL Creatinine 1.20 MG/DL Random Glucose 710 MG/DL Total Protein 7.5 GM/DL Albumin 3.5 GM/DL Calcium Level 9.0 MG/DL Magnesium Level 2.4 MG/DL Alkaline Phosphatase 124 U/L Aspartate Amino Transf (AST/SGOT) 26 U/L Alanine Aminotransferase (ALT/SGPT) 32 U/L Total Bilirubin 0.5 MG/DL Sodium Level 125 MEQ/L Potassium Level 4.8 MEQ/L Chloride Level 86 MEQ/L Carbon Dioxide Level 25.5 MEQ/L Anion Gap 14 MEQ/L Estimat Glomerular Filtration Rate 73 ML/MIN Lactic Acid Level 0.8 mmol/L B-Hydroxybutyrate 4.99 MMOL/L MDM Medical Decision Making Medical Screen Exam Complete: Yes Emergency Medical Condition: Yes Medical Record Reviewed: Yes Differential Diagnosis Noncompliance to insulin, DKA, hyperglycemia, electrolyte disorder Narrative Course The patient has noncompliance to insulin because of financial reasons. I discussed the patient with Dr. Baldwin and the patient will be 23 hour observation to her. While he is here we can consult case management about his inability to pay for his insulin. Physician Communication Physician Communication I discussed the patient with Dr. Baldwin. Diagnosis Primary Impression: Hyperglycemia Additional Impression: Noncompliance with medication regimen Admitting Information Admitting Physician Requests: Observation Vargas Nieto MD May 30, 2017 00:37
[2017-05-30 01:00] VITALS: BP 109/65; PULSE 78; RESP 16; TEMP 96.6; O2SAT 97
[2017-05-30] MEDS ORDERED: INSULIN HUMAN REGULAR 1,000 UNITS/10 ML VIAL IV PUSH ONE (01:00)
[2017-05-30] MEDS ORDERED: DEXTROSE 50% IN WATER 50 ML VIAL(D50) IV PUSH PRN (01:00)
[2017-05-30] MEDS ORDERED: ONDANSETRON HCL 4 MG/2 ML VIAL IVP PRN (01:00)
[2017-05-30] MEDS ORDERED: BISACODYL 10 MG SUPP RECTAL PRN (01:00)
[2017-05-30] MEDS ORDERED: ACETAMINOPHEN 325 MG TAB PO PRN (01:00)
[2017-05-30] MEDS ORDERED: LACTULOSE SYRUP 20 GM/30 ML CUP PO PRN (01:00)
[2017-05-30] MEDS ORDERED: GLUCAGON 1 MG/ML VIAL OTHER PRN (01:00)
[2017-05-30] MEDS ORDERED: NALOXONE HCL 0.4 MG/ML AMP IV PUSH PRN (01:00)
[2017-05-30] MEDS ORDERED: SENNOSIDES 8.6 MG TAB PO PRN (01:00)
[2017-05-30] MEDS ORDERED: MAGNESIUM HYDROXIDE SUSP 30 ML CUP PO PRN (01:00)
[2017-05-30] MEDS ORDERED: SODIUM CHLORIDE 0.9% FLUSH 10 ML FLUSH IV FLUSH PRN (01:00)
[2017-05-30] MEDS: SODIUM CHLOR 0.9% 1000 ML INJ 1,000 ML IV SCH ×2 (01:12→08:00)
[2017-05-30 01:51] VITALS: BP 109/67
[2017-05-30 08:00] VITALS: BP 105/57; PULSE 76; RESP 14; TEMP 97.6; O2SAT 97
[2017-05-30] MEDS: INSULIN ASPART SUPPLEMENTAL SCALE SQ SCH ×2 (08:21→11:31)
[2017-05-30] MEDS: DOCUSATE SODIUM 50 MG/SENNA 8.6 MG TAB PO SCH ×2 (08:21→08:25)
[2017-05-30] MEDS ORDERED: SODIUM CHLORIDE 0.9% FLUSH 10 ML FLUSH IV FLUSH SCH (09:00)
--- NOTE | 2017-05-30 09:10 | HHI.HP ---
[facility] Service [facility] Primary Care Physician No Primary Care Physician Admission Diagnosis Diabetes mellitus poor control, noncompliance to medications Diagnoses: (1) Hyperglycemia Diagnosis: Principal (2) Type 1 diabetes mellitus (3) Noncompliance with medication regimen Chief Complaint: Hyperglycemia Travel History International Travel<30 Days: No Contact w/Intl Traveler <30 Da: No Traveled to Known Affected Are: No History of Present Illness This is a 26-year-old male patient with type 1 diabetes who presented to the ED after running out of his insulin yesterday and presented with hyperglycemia. Patient was recently admitted to the hospital on May 18 with diabetic ketoacidosis. At that time to K protocol was in place and an insulin drip was started. Patient was discharged home on long-acting Levemir and sliding scale insulin. Patient states that he does not work nor is on disability and did not have enough money to afford his insulin. Patient states that while checking his blood sugar last night it was too high centimeter to read. Patient denies any recent illness including fever, chills, nausea, vomiting or diarrhea. Does not have insurance nor follows with the primary care physician. Past Family Social History Past Medical History Multiple DKA admissions Past Surgical History Left foot surgery Reported Medications Active Novolin R Inj (Insulin Human Regular) 1,000 Unit/10 Ml Vial 0 SQ DIRECTED Sliding Scale As Directed. Lantus 25 units Q HS. Allergies: Coded Allergies: No Known Allergies (Verified Adverse Reaction, Unknown, 05/18/17) Active Ordered Medications Current Medications Medications (Trade) Dose Ordered Sig/Jose Maria Route Start Time Stop Time Status Last Admin Sodium Chloride 1,000 ml @ 150 mls/hr Q6H40M IV 05/30/17 01:00 05/30/17 08:00 (NS Flush) 2 ml UNSCH PRN IV FLUSH 05/30/17 01:00 (NS Flush) 2 ml BID IV FLUSH 05/30/17 09:00 (Tylenol) 650 mg Q4H PRN PO 05/30/17 01:00 (Zofran Inj) 4 mg Q6H PRN IVP 05/30/17 01:00 (Narcan Inj) 0.4 mg UNSCH PRN IV PUSH 05/30/17 01:00 (Piedad-Colace) 1 tab BID PO 05/30/17 09:00 (Milk Of Magnesia Liq) 30 ml Q12H PRN PO 05/30/17 01:00 (Senokot) 17.2 mg Q12H PRN PO 05/30/17 01:00 (Dulcolax Supp) 10 mg DAILY PRN RECTAL 05/30/17 01:00 (Lactulose Liq) 30 ml DAILY PRN PO 05/30/17 01:00 (D50w (Vial) Inj) 50 ml UNSCH PRN IV PUSH 05/30/17 01:00 (Glucagon Inj) 1 mg UNSCH PRN OTHER 05/30/17 01:00 (NovoLOG SUPPLEMENTAL SCALE) 1 ACHS SLIDING SCALE SQ 05/30/17 08:00 05/30/17 11:31 (Levemir Inj) 25 units HS SQ 05/30/17 21:00 Family History family hx of lung cancer, cousin w/ from complications at age 38 Social History smokes PPD, used to do IVD in the past Physical Exam Vital Signs Vital Signs Date Time Temp Pulse Resp B/P (MAP) Pulse Ox O2 Delivery O2 Flow Rate FiO2 05/30/17 01:51 63 18 109/67 (81) 96 05/30/17 01:00 96.6 78 16 109/65 (80) 97 05/29/17 23:47 96 Room Air 05/29/17 23:45 18 96 Room Air 05/29/17 23:43 97.5 66 20 118/78 (91) 100 05/29/17 23:12 97.5 66 20 118/78 (91) 100 Physical Exam GENERAL: Well-nourished, well-developed patient in NAD. SKIN: Warm and dry. No rash. HEAD: Normocephalic. Atraumatic. EYES: Pupils equal and round. No scleral icterus. No injection or drainage. ENT: No nasal bleeding or discharge. Mucous membranes pink and moist. NECK: Supple. Trachea midline. CARDIOVASCULAR: Regular rate and rhythm. S1, S2 noted. No murmur appreciated. RESPIRATORY: No accessory muscle use. Clear to auscultation. Breath sounds equal bilaterally. GASTROINTESTINAL: Abdomen soft, non-tender, nondistended. Normoactive bowel sounds x4. MUSCULOSKELETAL: No obvious deformities. Extremities without clubbing, cyanosis , or edema. NEUROLOGICAL: Awake and alert. No obvious cranial nerve deficits. Motor grossly within normal limits. 5/5 muscle strength in bilateral upper and lower extremities. Normal speech. PSYCHIATRIC: Appropriate mood and affect; insight and judgment normal. Laboratory Laboratory Tests Test 05/29/17 23:45 White Blood Count 5.1 Red Blood Count 4.64 Hemoglobin 14.6 Hematocrit 44.2 Mean Corpuscular Volume 95.1 Mean Corpuscular Hemoglobin 31.5 Mean Corpuscular Hemoglobin Concent 33.1 Red Cell Distribution Width 13.1 Platelet Count 276 Mean Platelet Volume 5.9 Neutrophils (%) (Auto) 49.5 Lymphocytes (%) (Auto) 42.1 Monocytes (%) (Auto) 6.6 Eosinophils (%) (Auto) 1.2 Basophils (%) (Auto) 0.6 Neutrophils # (Auto) 2.5 Lymphocytes # (Auto) 2.2 Monocytes # (Auto) 0.3 Eosinophils # (Auto) 0.1 Basophils # (Auto) 0.0 CBC Comment DIFF FINAL Differential Comment Urine Color COLORLESS Urine Turbidity CLEAR Urine pH 6.0 Urine Specific [place] 1.023 Urine Protein NEG Urine Glucose (UA) 1000 OR GREATER Urine Ketones 40 Urine Occult Blood NEG Urine Nitrite NEG Urine Bilirubin NEG Urine Leukocyte Esterase NEG Urine RBC 0-2 Urine WBC 0-2 Urine Squamous Epithelial Cells 0-5 Urine Bacteria NONE Microscopic Urinalysis Comment CULT NOT INDICATED Blood Urea Nitrogen 23 Creatinine 1.20 Random Glucose 710 Total Protein 7.5 Albumin 3.5 Calcium Level 9.0 Magnesium Level 2.4 Alkaline Phosphatase 124 Aspartate Amino Transf (AST/SGOT) 26 Alanine Aminotransferase (ALT/SGPT) 32 Total Bilirubin 0.5 Sodium Level 125 Potassium Level 4.8 Chloride Level 86 Carbon Dioxide Level 25.5 Anion Gap 14 Estimat Glomerular Filtration Rate 73 Lactic Acid Level 0.8 B-Hydroxybutyrate 4.99 Result Diagram: 05/29/17234405/29/172344 Septic Shock Reassessment Septic shock perfusion: reassessment completed Caprini VTE Risk Assessment Caprini VTE Risk Assessment: No/Low Risk (score <= 1) Caprini Risk Assessment Model Point Value = 1 Point Value = 2 Point Value = 3 Point Value = 5 Age 41-60 Minor surgery BMI > 25 kg/m2 Swollen legs Varicose veins or History of unexplained or recurrent spontaneous Oral contraceptives or hormone replacement Sepsis (< 1 month) Serious lung disease, including pneumonia (< 1 month) Abnormal pulmonary function Acute myocardial infarction Congestive heart failure (< 1 month) History of inflammatory bowel disease Medical patient at bed rest Age 61-74 Arthroscopic surgery Major open surgery (> 45 min) Laparoscopic surgery (> 45 min) Malignancy Confined to bed (> 72 hours) Immobilizing plaster cast Central venous access Age >= 75 History of VTE Family history of VTE Factor V Leiden Prothrombin [id number] Lupus anticoagulant Anticardiolipin antibodies Elevated serum homocysteine Heparin-induced thrombocytopenia Other congenital or acquired thrombophilia Stroke (< 1 month) Elective arthroplasty Hip, pelvis, or leg fracture Acute spinal cord injury (< 1 month) Prophylaxis Regimen Total Risk Factor Score Risk Level Prophylaxis Regimen 0-1 Low Early ambulation 2 Moderate Order ONE of the following: *Sequential Compression Device (SCD) *Heparin 5000 units SQ BID 3-4 Higher Order ONE of the following medications: *Heparin 5000 units SQ TID *Enoxaparin/Lovenox 40 mg SQ daily (WT < 150 kg, CrCl > 30 mL/min) *Enoxaparin/Lovenox 30 mg SQ daily (WT < 150 kg, CrCl > 10-29 mL/min) *Enoxaparin/Lovenox 30 mg SQ BID (WT < 150 kg, CrCl > 30 mL/min) AND/OR *Sequential Compression Device (SCD) 5 or more Highest Order ONE of the following medications: *Heparin 5000 units SQ TID (Preferred with Epidurals) *Enoxaparin/Lovenox 40 mg SQ daily (WT < 150 kg, CrCl > 30 mL/min) *Enoxaparin/Lovenox 30 mg SQ daily (WT < 150 kg, CrCl > 10-29 mL/min) *Enoxaparin/Lovenox 30 mg SQ BID (WT < 150 kg, CrCl > 30 mL/min) AND *Sequential Compression Device (SCD) Assessment and Plan Assessment and Plan This is a 26-year-old male patient with type 1 diabetes who presented to the ED after running out of his insulin yesterday and presented with hyperglycemia. Hyperglycemia secondary to uncontrolled type 1 diabetes and noncompliance Random glucose on presentation was 710. Anion gap is closed. Not in DKA. Was given IV insulin in ED. Placed on insulin sliding scale, Accu-Cheks before meals and at bedtime, cover as needed. Placed on Levemir twenty-five units at night. Continue to monitor blood sugar trends. Patient educated on importance of compliance managing his diabetes. Case management consulted for assistance with patient obtaining insulin in the outpatient setting. Continue IV fluid for now. Encourage by mouth intake. Denies any nausea or vomiting. Zofran available when necessary. Supportive care. Thais Mansfield May 30, 2017 09:10
[2017-05-30 12:30] VITALS: BP 106/56; PULSE 78; RESP 14; TEMP 96.1; O2SAT 96
[2017-05-30] MEDS ORDERED: INSULIN DETEMIR 100 UNITS/ML VIAL SQ SCH (21:00)
== END 2017-05-30 12:57 | disposition left against medical advice (07) ==
LOC: PHED 23:01 → PHEDA 05-30 01:12 → PH3A 05-30 02:02
PROVIDERS: ADMIT Hospitalist; ATTEND Hospitalist
DX: E10.65 Type 1 diabetes mellitus with hyperglycemia (principal); F17.200 Nicotine dependence, unspecified, uncomplicated; Z91.14 Patient's other noncompliance with medication regimen
CPT/HCPCS: 80053; 81001; 82010; 82947; 82948; 83605; 83735; 85025; 96360; 96361; 96372; 99285; G0378; J1815; J7030